=== PATIENT | female | born 1985 | race Caucasian/White ===

== ENCOUNTER 2020-04-22 13:23 | Outpatient (REF) | payer OTHER, SELFPAY | END 2020-04-22 13:24 | disposition home or self-care (01) | LOC: HO.LAB 13:23 | PROVIDERS: Visit Provider Internal Medicine | DX: Z20.828 Contact with and (suspected) exposure to other viral communicable diseases (principal) | CPT/HCPCS: C9803; U0003 ==

== ENCOUNTER 2020-07-26 11:33 | Emergency (ER) | payer OTHER, SELFPAY ==
--- NOTE | ~2020-07-26 | XR_ITS ---
EXAMINATION: XR CHEST CLINICAL INFORMATION: Chest pain COMPARISON: Previous chest x-ray November 2016 TECHNIQUE: Frontal view of the chest was obtained. FINDINGS: The cardiac and mediastinal contours are normal. The lungs are clear. There is no pleural effusion or pneumothorax. There are surgical clips in the region of the stomach. Bony structures are unremarkable. XR/XR chest 1V IMPRESSION: Unremarkable examination.
[2020-07-26 11:37] VITALS: BP 139/75; PULSE 93; RESP 20; TEMP 36.8; O2SAT 100; BMI 33.7
--- NOTE | 2020-07-26 11:43 | ECG_ITS ---
Test Reason : CHEST PAIN Blood Pressure : / mmHG Vent. Rate : 098 BPM Atrial Rate : 099 BPM P-R Int : 136 ms QRS Dur : 076 ms QT Int : 332 ms P-R-T Axes : 069 050 033 degrees QTc Int : 423 ms Normal sinus rhythm Normal ECG When compared with ECG of 12-AUG-2008 02:58, No significant change was found Referred By: Generic ED Physician Electronically Signed By:JARED ARMENTA
--- NOTE | 2020-07-26 11:52 | PC.NURSE ---
PT HYPERVENTILATING DURING EKG ATTEMPT, HAVING FULL ANXIETY ATTACK ABLE TO GET PT TO SLOW RESP AND REGAIN HER BREATHING RATE
--- NOTE | 2020-07-26 11:52 | ED.CHESTPAIN ---
HPI - Chest Pain General Chief Complaint: Chest Pain Stated Complaint: chest pain Time Seen by Provider: 07/26/20 11:52 Source: patient Mode of arrival: ambulatory Limitations: no limitations History of Present Illness HPI narrative: 34-year-old female with history of gastric sleeve 2017 as well as history of gastroesophageal reflux disease presenting today with complaint of 2 days of feeling increased anxiety and panic. States she started feeling warm yesterday and last night was watching movie and became very upset all night could not sleep as she said she was worried about her health and this morning she went to work and experienced 2 episodes described as ?panic attacks? States she is not really sure why she is having these but feels overwhelmed for no specific reason. States she does not have any history of anxiety and not currently taking any routine medication she only takes Prilosec p.r.n.. She does admit she returned from [place] 2 days ago after a weekend trip there. She denies any lower extremity swelling or pain. No headache or dizziness. No control, she was on Depo in the past. Unsure if she could be . MD complaint: chest heaviness Onset (ago): day(s) Timing of current episode: episodic Prior episodes: No Onset: during rest Pain location: other (Diffuse tightness in the chest) Pain radiation: none Severity: moderate Quality: tightness Relieving factors: nothing Exacerbating factors: nothing Treatment prior to arrival: none Risk Factors Coronary artery disease risk factors: none Thoracic aortic dissection risk factors: none Related Data On Oral Contraceptives: No Previous Rx's Medication Instructions Recorded hydroxyzine HCl 25 mg PO BID PRN #14 tab 07/26/20 Allergies Allergy/AdvReac Type Severity Reaction Status Date / Time No Known Allergies Allergy Unverified 02/11/20 15:22 [No Known Allergies*] Pt states no food/medication Allergy Unknown Uncoded 09/13/17 00:00 a Review of Systems Review of Systems: Constitutional: No Weight loss, No Fever, No Chills, No Night Sweats, No Fatigue, No Malaise ENT/Mouth: No Hearing loss, No Ear Pain, No Nasal Congestion, No Sinus Pain, No Hoarseness, No sore throat, No Rhinorrhea, No Swallowing Difficulty Eyes: No Eye Pain, No Swelling, No Redness, No Foreign Body, No Discharge, No Vision Changes Cardiovascular: + Chest Pain as noted per HPI, No SOB, No Dyspnea on Exertion, No Orthopnea, No Edema, No Palpitations Respiratory: No Cough, No Sputum, No Wheezing, No Smoke Exposure, No Dyspnea Gastrointestinal: No Nausea, No Vomiting, No Diarrhea, No Constipation, No abdominal Pain, No Hematochezia, No Melena Genitourinary: no irregular bleeding, No Dysuria, No Urinary Frequency, No Hematuria, No Urinary Incontinence, No Urgency, No Flank Pain, No Urinary Flow Changes, No Hesitancy Musculoskeletal: No joint pain, No Myalgias, No Joint Swelling Skin: No Skin Lesions, No rash Neuro: No Weakness, No Numbness, No Paresthesias, No Loss of Consciousness, No Dizziness, No Headache Psych: + Anxiety/Panic, No Depression, No SI/HI/AH/VH Heme/Lymph: No Bruising, No Bleeding,No Lymphadenopathy Endocrine: No Polyuria, No Polydipsia, No Temperature Intolerance Yes all other systems are reviewed and are negative [facility] Past Medical History Medical History GERD (gastroesophageal reflux disease) Surgical History Gastric bypass status for obesity Social History Social History Advance Directives: Yes Advance Directives Information Provided: Yes Advance Directives on File: No Physical Exam Vital Signs: Vital Signs: Last Vital Signs Temp 98.3 F 07/26/20 11:37 Pulse 77 07/26/20 13:41 Resp 18 07/26/20 13:41 BP 110/53 L 07/26/20 13:41 Pulse Ox 98 07/26/20 13:41 Body Mass Index 33.7 Reviewed Const: Other: Ambulated in from the waiting room upon arrival I was at bedside she is tearful states she had another panic attack in the waiting room. General: anxious; No acute distress or intoxicated appearing Nutritional Appearance: average body habitus Orientation/consciousness: patient oriented x3 HENMT: Head: Yes normal to inspection Ears: hearing grossly normal bilaterally Eyes: General: appearance normal, both eyes and all related structures Visual Claire: normal visual claire by confrontation Neck: Neck: Yes normal visual inspection, No positive Brudzinski's sign, No positive Kernig's sign and No tender Thyroid: Thyroid normal Chest: Chest palpation & inspection: normal inspection of the chest Resp: Effort & Inspection: normal respiratory effort Auscultation: clear to auscultation bilaterally Cardio: Jugular venous distension: no JVD Rhythm: regular rhythm Heart sounds: S1 normal heart sound present and S2 normal heart sound present GI: Inspection: Yes normal to inspection Palpation (GI): Soft to palpation Percussion: Yes normal to percussion Auscultation: normal bowel sounds : General: Yes no CVA tenderness Back/Spine/Pelvis: Back: no CVA tenderness Skin: General skin exam: no rashes or lesions noted Neuro: General: patient oriented x3 Extrem: General: Yes normal to inspection Psych: Appearance: well kempt Mental Status: mental status grossly normal Speech and movement: Normal speech and movement present Affect: Anxious affect present Attitude: cooperative Thought process: Normal thought process present Thought content: Normal thought content present Insight: Good insight present (Psych) Judgement: Good judgement present (Psych) MDM - Chest Pain MDM Narrative Medical decision making narrative: In review 34-year-old female with prior history of gastric sleeve as well as gastroesophageal reflux disease intermittently uses PPI presenting with AP consistent with atypical chest pain/anxiety with unknown trigger. Workup overall reassuring feels much better and rested after 0.5 mg IV Ativan. She denies any suicidal homicidal ideation. Her heart score is 0, D-dimer negative. Will discharge home with short course hydroxyzine with stress relieving techniques and close outpatient follow-up. She feels comfortable plan. Stable for discharge. Differential Diagnosis Differential diagnosis: Likely atypical chest pain, costochondritis and chest pain; Unlikely fracture of rib, pneumothorax, stable angina, unstable angina pectoris, st elevation myocardial infarction and biliary colic Medical Records Data Attestation: I reviewed the patient's medical records. Lab Data Attestation: I reviewed the patient's lab results. Result diagrams: 07/26/20 12:46 07/26/20 13:50 Labs: Lab Results 07/26/20 07/26/20 07/26/20 Range/Units 12:45 12:45 12:46 WBC 9.4 (4.8-10.8) X10*3/uL RBC 4.18 L (4.20-5.50) X10*6/uL Hgb 13.6 (12.0-16.0) g/dl Hct 39.0 (37-47) % MCV 93.3 (80-98) fL MCH 32.5 (27.0-33.0) pg MCHC 34.9 (31.0-35.0) g/dl RDW 11.6 (11.0-16.0) % Plt Count 278 (160-400) X10*3/uL MPV 10.2 (9.4-12.3) fL Immature Gran % (Auto) 0.2 (0.0-0.4) % Neut % (Auto) 63.3 (45-73) % Lymph % (Auto) 27.1 (20-40) % [place] % (Auto) 7.3 (2-11) % Eos % (Auto) 1.6 (0-4) % Baso % (Auto) 0.5 (0-2) % Lymph # (Auto) 2.5 (1.2-4.9) X10*3/uL [place] # (Auto) 0.7 (0.1-1.2) X10*3/uL Eos # (Auto) 0.2 (0.0-0.4) X10*3/uL Baso # (Auto) 0.1 (0.0-0.2) X10*3/uL Abs Immat Gran (auto) 0.02 (0.00-0.03) X10*3/uL Absolute Neuts (auto) 5.9 (2.0-8.3) X10*3/uL Absolute Nucleated RBC 0.000 (0.0-0.012) X10*3/uL Nucleated RBC % (auto) 0.0 (0.0-0.2) /100WBC PT 12.4 (10.8-13.0) SEC INR 1.0 (0.9-1.1) APTT 41.0 H (24.1-38.0) SEC D-Dimer < 200 NG/ML Sodium (135-145) mmol/L Potassium (3.3-5.1) mmol/L Chloride (96-108) mmol/L Carbon Dioxide (22-29) mmol/L Anion Gap (12-20) BUN (9-16) mg/dL Creatinine (0.5-1.4) mg/dL Estim Creat Clear Calc Estimated GFR Random Glucose (60-115) mg/dL Calcium (8.4-10.2) mg/dL Total Bilirubin (0.0-1.0) mg/dL AST (5-31) U/L ALT (0-31) U/L Alkaline Phosphatase (39-117) U/L Troponin I High Sens < 3.5 (<3.5-17.0) ng/L Total Protein (6.5-8.0) g/dL Albumin (3.5-5.0) g/dL Urine Color Urine Appearance Urine pH (5.0-8.0) Ur Specific [place] (1.005-1.025) Urine Protein (NEG-TRACE) MG/DL Urine Glucose (UA) (NEG) MG/DL Urine Ketones (NEG) MG/DL Urine Blood (NEG) Urine Nitrite (NEG) Ur Leukocyte Esterase (NEG) Urine RBC (0) /HPF Urine WBC (0-4) /HPF Ur Squamous Epith Cells /LPF Urine Bacteria /LPF Urine Test (NEGATIVE) Urine Opiates Screen (Not Detect) Ur Barbiturates Screen (Not Detect) Ur Phencyclidine Scrn (Not Detect) Ur Amphetamines Screen (Not Detect) U Benzodiazepines Scrn (Not Detect) Urine Cocaine Screen (Not Detect) U Marijuana (THC) Screen (Not Detect) SARS-CoV-2 (PCR) COVID-19 ([facility]) (Negative) COVID-19 Clin Com 07/26/20 07/26/20 07/26/20 Range/Units 13:00 13:00 13:50 WBC (4.8-10.8) X10*3/uL RBC (4.20-5.50) X10*6/uL Hgb (12.0-16.0) g/dl Hct (37-47) % MCV (80-98) fL MCH (27.0-33.0) pg MCHC (31.0-35.0) g/dl RDW (11.0-16.0) % Plt Count (160-400) X10*3/uL MPV (9.4-12.3) fL Immature Gran % (Auto) (0.0-0.4) % Neut % (Auto) (45-73) % Lymph % (Auto) (20-40) % [place] % (Auto) (2-11) % Eos % (Auto) (0-4) % Baso % (Auto) (0-2) % Lymph # (Auto) (1.2-4.9) X10*3/uL [place] # (Auto) (0.1-1.2) X10*3/uL Eos # (Auto) (0.0-0.4) X10*3/uL Baso # (Auto) (0.0-0.2) X10*3/uL Abs Immat Gran (auto) (0.00-0.03) X10*3/uL Absolute Neuts (auto) (2.0-8.3) X10*3/uL Absolute Nucleated RBC (0.0-0.012) X10*3/uL Nucleated RBC % (auto) (0.0-0.2) /100WBC PT (10.8-13.0) SEC INR (0.9-1.1) APTT (24.1-38.0) SEC D-Dimer NG/ML Sodium 140 (135-145) mmol/L Potassium 4.2 (3.3-5.1) mmol/L Chloride 110 H (96-108) mmol/L Carbon Dioxide 22 (22-29) mmol/L Anion Gap 12 (12-20) BUN 12 (9-16) mg/dL Creatinine 0.77 (0.5-1.4) mg/dL Estim Creat Clear Calc 89.6 Estimated GFR > 60 Random Glucose 70 (60-115) mg/dL Calcium 8.6 (8.4-10.2) mg/dL Total Bilirubin 0.3 (0.0-1.0) mg/dL AST 16 (5-31) U/L ALT 15 (0-31) U/L Alkaline Phosphatase 74 (39-117) U/L Troponin I High Sens (<3.5-17.0) ng/L Total Protein 6.8 (6.5-8.0) g/dL Albumin 4.1 (3.5-5.0) g/dL Urine Color Urine Appearance Urine pH (5.0-8.0) Ur Specific [place] (1.005-1.025) Urine Protein (NEG-TRACE) MG/DL Urine Glucose (UA) (NEG) MG/DL Urine Ketones (NEG) MG/DL Urine Blood (NEG) Urine Nitrite (NEG) Ur Leukocyte Esterase (NEG) Urine RBC (0) /HPF Urine WBC (0-4) /HPF Ur Squamous Epith Cells /LPF Urine Bacteria /LPF Urine Test (NEGATIVE) Urine Opiates Screen (Not Detect) Ur Barbiturates Screen (Not Detect) Ur Phencyclidine Scrn (Not Detect) Ur Amphetamines Screen (Not Detect) U Benzodiazepines Scrn (Not Detect) Urine Cocaine Screen (Not Detect) U Marijuana (THC) Screen (Not Detect) SARS-CoV-2 (PCR) Cancelled COVID-19 ([facility]) Negative (Negative) COVID-19 Clin Com See Note 07/26/20 07/26/20 07/26/20 Range/Units 13:50 13:50 13:50 WBC (4.8-10.8) X10*3/uL RBC (4.20-5.50) X10*6/uL Hgb (12.0-16.0) g/dl Hct (37-47) % MCV (80-98) fL MCH (27.0-33.0) pg MCHC (31.0-35.0) g/dl RDW (11.0-16.0) % Plt Count (160-400) X10*3/uL MPV (9.4-12.3) fL Immature Gran % (Auto) (0.0-0.4) % Neut % (Auto) (45-73) % Lymph % (Auto) (20-40) % [place] % (Auto) (2-11) % Eos % (Auto) (0-4) % Baso % (Auto) (0-2) % Lymph # (Auto) (1.2-4.9) X10*3/uL [place] # (Auto) (0.1-1.2) X10*3/uL Eos # (Auto) (0.0-0.4) X10*3/uL Baso # (Auto) (0.0-0.2) X10*3/uL Abs Immat Gran (auto) (0.00-0.03) X10*3/uL Absolute Neuts (auto) (2.0-8.3) X10*3/uL Absolute Nucleated RBC (0.0-0.012) X10*3/uL Nucleated RBC % (auto) (0.0-0.2) /100WBC PT (10.8-13.0) SEC INR (0.9-1.1) APTT (24.1-38.0) SEC D-Dimer NG/ML Sodium (135-145) mmol/L Potassium (3.3-5.1) mmol/L Chloride (96-108) mmol/L Carbon Dioxide (22-29) mmol/L Anion Gap (12-20) BUN (9-16) mg/dL Creatinine (0.5-1.4) mg/dL Estim Creat Clear Calc Estimated GFR Random Glucose (60-115) mg/dL Calcium (8.4-10.2) mg/dL Total Bilirubin (0.0-1.0) mg/dL AST (5-31) U/L ALT (0-31) U/L Alkaline Phosphatase (39-117) U/L Troponin I High Sens (<3.5-17.0) ng/L Total Protein (6.5-8.0) g/dL Albumin (3.5-5.0) g/dL Urine Color YELLOW Urine Appearance CLEAR Urine pH 6.5 (5.0-8.0) Ur Specific [place] 1.015 (1.005-1.025) Urine Protein NEG (NEG-TRACE) MG/DL Urine Glucose (UA) NEG (NEG) MG/DL Urine Ketones NEG (NEG) MG/DL Urine Blood NEG (NEG) Urine Nitrite NEG (NEG) Ur Leukocyte Esterase NEG (NEG) Urine RBC 0 (0) /HPF Urine WBC 0 (0-4) /HPF Ur Squamous Epith Cells NONE /LPF Urine Bacteria NONE /LPF Urine Test NEGATIVE (NEGATIVE) Urine Opiates Screen Not Detected (Not Detect) Ur Barbiturates Screen Not Detected (Not Detect) Ur Phencyclidine Scrn Not Detected (Not Detect) Ur Amphetamines Screen Not Detected (Not Detect) U Benzodiazepines Scrn Not Detected (Not Detect) Urine Cocaine Screen Not Detected (Not Detect) U Marijuana (THC) Screen Not Detected (Not Detect) SARS-CoV-2 (PCR) COVID-19 ([facility]) (Negative) COVID-19 Clin Com Imaging Data Chest x-ray: Radiologist's impression: [address] [id number] ReportSigned Patient: Josiane SantizoMR#: [id number]: [id number]:[id number]/Sex: 34 / FADM Date: 07/26/20Loc: HO.EDAttending Dr: Ordering Physician: Donavon Dee NP Date of Service: 07/26/20 Procedure(s): XR chest 1V Accession Number(s): [id number] cc: Donavon Dee COMPUTER ASSEMBLER~ EXAMINATION: XR CHEST CLINICAL INFORMATION: Chest pain COMPARISON: Previous chest x-ray November 2016 TECHNIQUE: Frontal view of the chest was obtained. FINDINGS: The cardiac and mediastinal contours are normal. The lungs are clear. There is no pleural effusion or pneumothorax. There are surgical clips in the region of the stomach. Bony structures are unremarkable. XR/XR chest 1V IMPRESSION: Unremarkable examination. Dictated By:BONI LOPEZ MDSigned By:<Electronically signed by BONI LOPEZ MD in OV>07/26/20 1238 DD/ 1159TD/TT: Turntable Man: ILA ECG Data ECG #1: Interpretation: Normal sinus rhythm Normal ECG Rate 98 When compared with ECG of 12-AUG-2008 02:58, No significant change was found Discharge Plan Discharge Clinical Impression: Atypical chest pain, Anxiety Patient Disposition: Home, Self-Care Instructions: Chest Pain (ED), Anxiety (ED) Additional Instructions: Your blood work was overall reassuring Her chest x-ray did not show any signs of infection Your blood work did not show any evidence of heart attack Your COVID test was negative Your urine test was negative for infection or Home care instructions reviewed Return if any concerns or worsening symptoms Follow up with her primary care doctor as discussed Take medication as prescribed Thank you Prescriptions: New hydroxyzine HCl 25 mg tablet 25 mg PO BID PRN (Reason: anxiety) Qty: 14 RF: 1 Referrals: Pablito Varela MD [Primary Care Provider] - 3 days Stand Alone Forms: Work/School Release Interventions: ED Discharge Assessment Last Done: 07/26/20 14:58 Discharge Date/Time: 07/26/20 14:58
[2020-07-26 12:51] LABS: Basophils Absolute Auto 0.1 X10*3/uL (0.0-0.2); Basophils Percent Auto 0.5 % (0-2); Eosinophils Absolute Auto 0.2 X10*3/uL (0.0-0.4); Eosinophils Percent Auto 1.6 % (0-4); Hemoglobin 13.6 g/dl (12.0-16.0); Imm Gran Abs Auto 0.02 X10*3/uL (0.00-0.03); Imm Gran Pct Auto 0.2 % (0.0-0.4); Lymphocytes Absolute Auto 2.5 X10*3/uL (1.2-4.9); Lymphocytes Percent Auto 27.1 % (20-40); MANUAL DIFF FLAG NO; Mean Corpuscular HGB Conc 34.9 g/dl (31.0-35.0); Mean Corpuscular Hemoglobin 32.5 pg (27.0-33.0); Mean Corpuscular Volume 93.3 fL (80-98); Mean Platelet Volume 10.2 fL (9.4-12.3); Monocytes Absolute Auto 0.7 X10*3/uL (0.1-1.2); Monocytes Percent Auto 7.3 % (2-11); Neutrophils Absolute Auto 5.9 X10*3/uL (2.0-8.3); Neutrophils Percent Auto 63.3 % (45-73); Platelet Count 278 X10*3/uL (160-400); Red Blood Count 4.18 X10*6/uL (4.20-5.50); Red Cell Distribution Width 11.6 % (11.0-16.0); White Blood Count 9.4 X10*3/uL (4.8-10.8)
[2020-07-26] MEDS: LORazepam 2 MG/ML VIAL 0.5 MG IVPUSH (12:53)
[2020-07-26 13:01] LABS: Prothrombin Time 12.4 SEC (10.8-13.0)
[2020-07-26 13:05] LABS: D Dimer < 200 NG/ML
[2020-07-26 13:26] LABS: Troponin-I High Sensitivity < 3.5 ng/L (<3.5-17.0)
[2020-07-26 13:41] VITALS: BP 110/53; PULSE 77; RESP 18; O2SAT 98
[2020-07-26 13:41] LABS: COVID-19 Test Negative (Negative)
--- NOTE | 2020-07-26 13:59 | PC.NURSE ---
ambulated to bathroom but needed assistance. states that ativan made her dizzy.
[2020-07-26 14:05] LABS: Glucose Urine UA NEG (NEG); Leukocyte Esterase Urine NEG (NEG); Nitrite Urine NEG (NEG); PH 6.5 (5.0-8.0); Specific Gravity - Urine 1.015 (1.005-1.025); Urine Blood NEG (NEG); Urine Ketones NEG (NEG); Urine Protein NEG (NEG-TRACE)
[2020-07-26 14:08] LABS: Appearance Urine CLEAR; Color Urine YELLOW; UPreg QC Valid YES; Urine Pregnancy NEGATIVE (NEGATIVE)
[2020-07-26 14:19] LABS: RBC Urine 0 /HPF (0); WBC Urine 0 /HPF (0-4)
[2020-07-26 14:23] LABS: Alanine Aminotransferase 15 U/L (0-31); Albumin Level 4.1 g/dL (3.5-5.0); Alkaline Phosphatase 74 U/L (39-117); Anion Gap 12 (12-20); Aspartate Amino Transferase 16 U/L (5-31); Bilirubin Total 0.3 mg/dL (0.0-1.0); Blood Urea Nitrogen 12 mg/dL (9-16); Calcium 8.6 mg/dL (8.4-10.2); Carbon Dioxide 22 mmol/L (22-29); Chloride 110 mmol/L (96-108); Creatinine Clr Calc Pharmacy 89.6; Estimated Glomerular Filt Rate > 60; Glucose Random 70 mg/dL (60-115); Potassium 4.2 mmol/L (3.3-5.1); Sodium 140 mmol/L (135-145); Total Protein 6.8 g/dL (6.5-8.0)
[2020-07-26 14:35] LABS: Amphetamine Screen Urine Not Detected (Not Detect); Barbiturates, Urine Not Detected (Not Detect); Benzodiazepines Screen Urine Not Detected (Not Detect); Cannabinoid Screen Urine Not Detected (Not Detect); Cocaine Screen Urine Not Detected (Not Detect); Opiate Screen Urine Not Detected (Not Detect); Phencyclidine Screen Urine Not Detected (Not Detect)
== END 2020-07-26 14:58 | disposition home or self-care (01) ==
PROVIDERS: Nurse Practitioner Primary Care; Emergency Provider Emergency Medicine; PCP Internal Medicine
DX: R07.89 Other chest pain (principal); F41.1 Generalized anxiety disorder; F43.0 Acute stress reaction; Z98.84 Bariatric surgery status; Z79.899 Other long term (current) drug therapy
CPT/HCPCS: 36415; 71045; 80053; 80307; 81001; 81025; 84484; 85025; 85379; 85610; 85730; 87635; 93005; 96374; 99283; J2060

== ENCOUNTER 2021-02-15 14:58 | Outpatient (REF) | payer OTHER, SELFPAY | END 2021-02-15 14:59 | disposition home or self-care (01) | LOC: HO.LAB 14:58 | PROVIDERS: Visit Provider Internal Medicine | DX: Z20.822 Contact with and (suspected) exposure to COVID-19 (principal); J06.9 Acute upper respiratory infection, unspecified | CPT/HCPCS: U0003; U0005 ==

== ENCOUNTER 2021-11-19 11:43 | Emergency (ER) | payer OTHER, SELFPAY ==
--- NOTE | ~2021-11-19 | XR_ITS ---
EXAMINATION: XR CHEST CLINICAL INFORMATION: Shortness of breath COMPARISON: 07/26/2020 TECHNIQUE: Frontal view of the chest was obtained. FINDINGS: No significant abnormality is noted involving the heart, lungs, mediastinum, bony thorax or soft tissues. XR/XR chest 1V IMPRESSION: Unremarkable examination.
[2021-11-19 11:49] VITALS: BP 130/97; PULSE 100; O2SAT 100
[2021-11-19 11:53] VITALS: BP 118/70; PULSE 95; RESP 20; TEMP 36.8; O2SAT 100; BMI 37.3
[2021-11-19 11:57] LABS: Glucose, Whole Blood 100 mg/dL (60-115)
--- NOTE | 2021-11-19 12:09 | ED_ITS ---
HPI - General Adult General Chief complaint: Recheck/Abnormal Lab/Rx Stated complaint: DIFF BREATH 100% RA,ANX ATTACK,BS 70 GLUC GIVEN Time Seen by Provider: 11/19/21 11:50 Source: patient and EMS Mode of arrival: EMS Limitations: no limitations History of Present Illness HPI narrative: 36-year-old female past medical history significant for anxiety/panic presenting to the emergency department via ambulance with shortness of breath and reported hypoglycemia. According to EMS they were called because patient was feeling short of breath, when they arrived she was noted to have a low sugar, they administered glucose with improvement. Patient tells me that she felt very dizzy, diaphoretic and she felt like she was going to pass out however she never lost consciousness. She tells me that her vision became blurred. She tells me that this feels like her typical anxiety/panic attack, cannot report any ahsan ers, she tells me that they happen randomly sometimes. Patient also reports that she did not eat at all today. At this time patient is feeling completely better, denies any medical complaints. Patient denies chest pain, nausea, vomiting, fevers, chills, abdominal pain, headache, vision changes, dizziness. Patient requesting to go home as she arrives to the hospital. Onset (ago): hour(s) (2) Related Data Previous Rx's Medication Instructions Recorded hydroxyzine HCl 25 mg tablet 25 mg PO BID PRN anxiety #14 tabs 07/26/20 azithromycin 250 mg tablet See Rx Instructions PO .COMPLEX #6 02/15/21 tabs Allergies Allergy/AdvReac Type Severity Reaction Status Date / Time No Known Allergies Allergy Verified 02/15/21 14:19 [No Known Allergies*] Pt states no food/medication Allergy Unknown unknown Uncoded 02/15/21 14:19 a Review of Systems Review of Systems: Constitutional : No Weight loss, No Fever, No Chills, No Fatigue, No Malaise ENT/Mouth : No sore throat, No Rhinorrhea Eyes: No Eye Pain, No Swelling, No Redness Cardiovascular : No Chest Pain, No SOB, No Dyspnea on Exertion, No Orthopnea, No Edema, No Palpitations Respiratory : No Cough, No Sputum, No Wheezing Gastrointestinal : No Nausea, No Vomiting, No Diarrhea, No Constipation, No abdominal Pain, No Hematochezia, No Melena Genitourinary : No Dysuria, No Urinary Frequency, No Hematuria, Musculoskeletal : No joint pain, No Myalgias, No Joint Swelling Skin : No Skin Lesions, No rash Neuro : No Weakness, No Numbness, No Dizziness, No Headache Psych : No Anxiety/Panic, No Depression All other systems reviewed and are negative Yes all other systems are reviewed and are negative [facility] Past Medical History Attestation statement: The following information was validated with the patient. Source: old records reviewed and nursing notes reviewed Medical History GERD (gastroesophageal reflux disease) Surgical History Gastric bypass status for obesity Social History Social History Advance Directives: No Advance Directives Information Provided: No Physical Exam ED Vital Signs: Vital Signs - 24 hr 11/19/21 11:53 Temperature 98.2 F Pulse Rate 95 Respiratory Rate 20 Blood Pressure 118/70 Pulse Oximetry 100 Oxygen Delivery Method Room Air BMI result Body Mass Index 37.3 VSS Appearance: Alert.? Oriented X3.? No acute distress.? Head: Normocephalic, atraumatic, no step-offs or deformities Eyes: Pupils equal, round and reactive to light.?EOMI ENT: Pharynx normal.? Neck: Normal inspection.? Neck supple.? CVS: Normal heart rate and rhythm.? Pulses normal.? Respiratory: No respiratory distress.? Breath sounds normal.? Abdomen: Soft and nontender.? Skin: Skin warm and dry.? Normal skin color.? Normal skin turgor.? Extremities: No lower extremity edema.? No calf ttp. 5/5 strength to bilateral upper and lower extremities Neuro: Oriented X 3.? No motor deficit.? No sensory deficit. CN 2-12 intact. Nor mal steady gait, normal finger to nose. Course Reevaluation(s) Reevaluation #1: CBC within normal limits. POC 100. Chemistry pending. Time: 13:14 Reevaluation #2: Patient's labs hemolyzed and patient was very test checked therefore there is a delay in obtaining laboratory studies. Chemistry with no acute electrolyte abnormalities requiring intervention. Troponin negative, EKG nonischemic. UA without infection. COVID negative. Time: 15:00 Reevaluation #3: At this time I suspect that patient had a panic/anxiety attack. No signs of electrolyte abnormalities. No signs of dysrhythmia/EKG abnormalities. No signs of ACS. At this time patient will be discharged home patient's last glucose was 100, patient tells me she feels much better. At this time patient will be discharged. Outlined worrisome signs and symptoms on discharge in advised her to return if any of these arise Time: 15:02 Medical Decision Making [facility] Narrative Medical decision making narrative: 1210 36-year-old female presents with EMS who reported that she had shortness of breath, dizziness, was found to have hypoglycemia at work and therefore was given glucose by the ambulance. Now on arrival patient reports that all symptoms have subsided she has none of these symptoms anymore, she is feeling better and she feels like this was her typical panic attack. Physical examination benign Unlikley CHF, PE/DVT, pna, stroke, posterior stroke. Likley acute panic. Plan at this time is basic labs, EKG, hydration Medical Records Medical records reviewed: Yes I reviewed the patient's medical records. Lab Data Lab results reviewed: Yes I reviewed the patient's lab results. Result diagrams: 11/19/21 12:33 11/19/21 13:55 Labs: Lab Results 11/19/21 11/19/21 11/19/21 Range/Units 11:53 12:29 12:33 WBC 10.8 (4.8-10.8) X10*3/uL RBC 4.41 (4.20-5.50) X10*6/uL Hgb 13.9 (12.0-16.0) g/dl Hct 40.5 (37.0-47.0) % MCV 91.8 (80.0-98.0) fL MCH 31.5 (27.0-33.0) pg MCHC 34.3 (31.0-35.0) g/dl RDW 12.1 (11.0-16.0) % Plt Count 270 (160-400) X10*3/uL MPV 10.1 (9.4-12.3) fL Immature Gran % (Auto) 0.4 (0.0-0.4) % Neut % (Auto) 68.3 (45-73) % Lymph % (Auto) 22.2 (20-40) % [place] % (Auto) 7.4 (2-11) % Eos % (Auto) 1.3 (0-4) % Baso % (Auto) 0.4 (0-2) % Lymph # (Auto) 2.4 (1.2-4.9) X10*3/uL [place] # (Auto) 0.8 (0.1-1.2) X10*3/uL Eos # (Auto) 0.1 (0.0-0.4) X10*3/uL Baso # (Auto) 0.0 (0.0-0.2) X10*3/uL Abs Immat Gran (auto) 0.04 H (0.00-0.03) X10*3/uL Absolute Neuts (auto) 7.4 (2.0-8.3) x10*3/uL Absolute Nucleated RBC 0.000 (0.0-0.012) X10*3/uL Nucleated RBC % (auto) 0.0 (0.0-0.2) /100WBC Sodium (135-145) mmol/L Potassium (3.3-5.1) mmol/L Chloride (96-108) mmol/L Carbon Dioxide (22-29) mmol/L Anion Gap (12-20) BUN (9-16) mg/dL Creatinine (0.5-1.4) mg/dL Estim Creat Clear Calc Estimated GFR POC Glucose 100 (60-115) mg/dL Random Glucose (60-115) mg/dL Calcium (8.4-10.2) mg/dL Magnesium (1.6-2.6) mg/dL Total Bilirubin (0.0-1.0) mg/dL AST (5-31) U/L ALT (0-31) U/L Alkaline Phosphatase (39-117) U/L Troponin I High Sens (<3.5-17.0) ng/L Total Protein (6.5-8.0) g/dL Albumin (3.5-5.0) g/dL Urine Color Urine Appearance Urine pH (5.0-8.0) Ur Specific [place] (1.005-1.025) Urine Protein (NEG-TRACE) MG/DL Urine Glucose (UA) (NEG) MG/DL Urine Ketones (NEG) MG/DL Urine Blood (NEG) Urine Nitrite (NEG) Ur Leukocyte Esterase (NEG) Urine RBC (0) /HPF Urine WBC (0-4) /HPF Ur Squamous Epith Cells /LPF Urine Bacteria /LPF COVID-19 ([facility]) Negative (Negative) COVID-19 Clin Com See Note 11/19/21 11/19/21 11/19/21 Range/Units 13:42 13:55 13:56 WBC (4.8-10.8) X10*3/uL RBC (4.20-5.50) X10*6/uL Hgb (12.0-16.0) g/dl Hct (37.0-47.0) % MCV (80.0-98.0) fL MCH (27.0-33.0) pg MCHC (31.0-35.0) g/dl RDW (11.0-16.0) % Plt Count (160-400) X10*3/uL MPV (9.4-12.3) fL Immature Gran % (Auto) (0.0-0.4) % Neut % (Auto) (45-73) % Lymph % (Auto) (20-40) % [place] % (Auto) (2-11) % Eos % (Auto) (0-4) % Baso % (Auto) (0-2) % Lymph # (Auto) (1.2-4.9) X10*3/uL [place] # (Auto) (0.1-1.2) X10*3/uL Eos # (Auto) (0.0-0.4) X10*3/uL Baso # (Auto) (0.0-0.2) X10*3/uL Abs Immat Gran (auto) (0.00-0.03) X10*3/uL Absolute Neuts (auto) (2.0-8.3) x10*3/uL Absolute Nucleated RBC (0.0-0.012) X10*3/uL Nucleated RBC % (auto) (0.0-0.2) /100WBC Sodium 138 (135-145) mmol/L Potassium 3.9 (3.3-5.1) mmol/L Chloride 109 H (96-108) mmol/L Carbon Dioxide 20 L (22-29) mmol/L Anion Gap 13 (12-20) BUN 12 (9-16) mg/dL Creatinine 0.66 (0.5-1.4) mg/dL Estim Creat Clear Calc 108.5 Estimated GFR > 60 POC Glucose (60-115) mg/dL Random Glucose 85 (60-115) mg/dL Calcium 8.7 (8.4-10.2) mg/dL Magnesium 2.0 (1.6-2.6) mg/dL Total Bilirubin < 0.2 (0.0-1.0) mg/dL AST 16 (5-31) U/L ALT 14 (0-31) U/L Alkaline Phosphatase 78 (39-117) U/L Troponin I High Sens < 3.5 (<3.5-17.0) ng/L Total Protein 6.8 (6.5-8.0) g/dL Albumin 4.0 (3.5-5.0) g/dL Urine Color YELLOW Urine Appearance CLEAR Urine pH 6.0 (5.0-8.0) Ur Specific [place] 1.015 (1.005-1.025) Urine Protein NEG (NEG-TRACE) MG/DL Urine Glucose (UA) NEG (NEG) MG/DL Urine Ketones NEG (NEG) MG/DL Urine Blood 2+ H (NEG) Urine Nitrite NEG (NEG) Ur Leukocyte Esterase NEG (NEG) Urine RBC 0-2 (0) /HPF Urine WBC 0 (0-4) /HPF Ur Squamous Epith Cells 1+ /LPF Urine Bacteria TRACE /LPF COVID-19 ([facility]) (Negative) COVID-19 Clin Com ECG Data Attestation: I personally reviewed and interpreted this ECG as follows: Prior ECG tracings: not available for review Interpretation: Ventricular rate of 78, MS normal, QRS normal, QT/QTC normal. EKG without ST elevations or inversions concerning for ischemia. No previous EKGs to compare with. Critical Care Time Critical Care Time Critical Care Time: No Discharge Plan Discharge Clinical Impression: Near syncope, Panic attack Patient Disposition: Home, Self-Care Additional Instructions: Take your medications as prescribed. If you were prescribed antibiotics today, it is important that you take your medication to their entirety, do not skip any doses, do not finish them early. Follow-up with your primary care provider this week. Return to the emergency department with new or worsening symptoms. Such as fevers, chills, chest pain, shortness of breath, nausea, vomiting, dizziness, headache, vision changes, lethargy In case of emergency call 911 Drink plenty of fluids. Prescriptions: No Action hydroxyzine HCl 25 mg tablet 25 mg PO BID PRN (Reason: anxiety) Qty: 14 1RF azithromycin 250 mg tablet See Rx Instructions PO .COMPLEX Qty: 6 0RF Rx Instructions: take 500 mg today (day 1), then 250 mg for 4 days (days 2-5) PO Referrals: Pablito Varela III, MD [Primary Care Provider] - 2 days Stand Alone Forms: Work/School Release
[2021-11-19 12:41] LABS: MANUAL DIFF FLAG NO
[2021-11-19 12:43] LABS: Basophils Percent Auto 0.4 % (0-2); Eosinophils Absolute Auto 0.1 X10*3/uL (0.0-0.4); Eosinophils Percent Auto 1.3 % (0-4); Hematocrit 40.5 % (37.0-47.0); Hemoglobin 13.9 g/dl (12.0-16.0); Imm Gran Abs Auto 0.04 X10*3/uL (0.00-0.03); Imm Gran Pct Auto 0.4 % (0.0-0.4); Lymphocytes Absolute Auto 2.4 X10*3/uL (1.2-4.9); Lymphocytes Percent Auto 22.2 % (20-40); Mean Corpuscular HGB Conc 34.3 g/dl (31.0-35.0); Mean Corpuscular Hemoglobin 31.5 pg (27.0-33.0); Mean Corpuscular Volume 91.8 fL (80.0-98.0); Mean Platelet Volume 10.1 fL (9.4-12.3); Monocytes Absolute Auto 0.8 X10*3/uL (0.1-1.2); Monocytes Percent Auto 7.4 % (2-11); Neutrophils Absolute Auto 7.4 x10*3/uL (2.0-8.3); Neutrophils Percent Auto 68.3 % (45-73); Platelet Count 270 X10*3/uL (160-400); Red Blood Count 4.41 X10*6/uL (4.20-5.50); Red Cell Distribution Width 12.1 % (11.0-16.0); White Blood Count 10.8 X10*3/uL (4.8-10.8)
[2021-11-19 13:00] LABS: COVID-19 Test Negative (Negative); IDNOW Serial# 08D9AD1C
--- NOTE | 2021-11-19 13:14 | ECG_ITS ---
Test Reason : HYPOGLYCEMIA Blood Pressure : / mmHG Vent. Rate : 000 BPM Atrial Rate : 000 BPM P-R Int : 000 ms QRS Dur : 000 ms QT Int : 000 ms P-R-T Axes : 000 000 000 degrees QTc Int : 000 ms No QRS complexes found, no ECG analysis possible When compared with ECG of 26-JUL-2020 11:51, Current undetermined rhythm precludes rhythm comparison, needs review Referred By: Damián Duncan Electronically Signed By:
[2021-11-19] MEDS: 0.9 % Sodium Chloride 1,000 ML 999 ML IV (13:23)
--- NOTE | 2021-11-19 14:08 | PC.NURSE ---
pt requiring multiple sticks for blood work d/t hemolysis
[2021-11-19 14:10] LABS: Appearance Urine CLEAR; Color Urine YELLOW; Glucose Urine UA NEG (NEG); Leukocyte Esterase Urine NEG (NEG); Nitrite Urine NEG (NEG); Specific Gravity - Urine 1.015 (1.005-1.025); UACC Culture Trigger NO; Urine Blood 2+ (NEG); Urine Ketones NEG (NEG); Urine Protein NEG (NEG-TRACE)
[2021-11-19 14:29] LABS: Bacteria Urine TRACE /LPF; RBC Urine 0-2 /HPF (0); Squamous Epithelial Cell Urine 1+ /LPF; WBC Urine 0 /HPF (0-4)
[2021-11-19 14:35] LABS: Alanine Aminotransferase 14 U/L (0-31); Alkaline Phosphatase 78 U/L (39-117); Anion Gap 13 (12-20); Aspartate Amino Transferase 16 U/L (5-31); Bilirubin Total < 0.2 mg/dL (0.0-1.0); Blood Urea Nitrogen 12 mg/dL (9-16); Calcium 8.7 mg/dL (8.4-10.2); Carbon Dioxide 20 mmol/L (22-29); Chloride 109 mmol/L (96-108); Creatinine Clr Calc Pharmacy 108.5; Estimated Glomerular Filt Rate > 60; Glucose Random 85 mg/dL (60-115); Potassium 3.9 mmol/L (3.3-5.1); Sodium 138 mmol/L (135-145); Total Protein 6.8 g/dL (6.5-8.0)
[2021-11-19 14:53] LABS: Troponin-I High Sensitivity < 3.5 ng/L (<3.5-17.0)
== END 2021-11-19 15:02 | disposition home or self-care (01) ==
PROVIDERS: Physician Assistant; Emergency Provider Emergency Medicine Emergency Medical Services; PCP Internal Medicine
DX: F41.0 Panic disorder [episodic paroxysmal anxiety] (principal); R55 Syncope and collapse; E16.2 Hypoglycemia, unspecified; Z98.84 Bariatric surgery status; Z20.822 Contact with and (suspected) exposure to COVID-19
CPT/HCPCS: 71045; 80053; 81001; 81003; 82947; 83735; 84484; 85025; 87635; 93005; 96360; 99283; 99284

== ENCOUNTER 2022-05-02 15:06 | Emergency (ER) | payer OTHER, SELFPAY | END 2022-05-02 18:11 | disposition left against medical advice (07) | LOC: HO.ED 18:07 | PROVIDERS: Emergency Provider Emergency Medicine; PCP Internal Medicine | DX: R51.9 Headache, unspecified (principal) ==

== ENCOUNTER 2022-05-17 20:01 | Emergency (ER) | payer OTHER, SELFPAY ==
[2022-05-17 20:21] VITALS: BP 118/73; PULSE 102; RESP 16; TEMP 37.2; O2SAT 98; BMI 38.3
[2022-05-17 21:45] LABS: Influenza A PCR NEGATIVE (Negative); Influenza B PCR NEGATIVE (Negative); Resp Syncy Virus RNA Qual PCR NEGATIVE (Negative); SARS COV2 PCR INHOUSE NEGATIVE (Negative)
[2022-05-17] MEDS: Albuterol Sulfate 2.5 MG, Albuterol/Iprat 2.5/0.5MG 3 ML 3 ML INHALE (23:38)
[2022-05-17 23:40] VITALS: PULSE 96; RESP 16; O2SAT 96
--- NOTE | 2022-05-18 00:09 | ED.URI ---
HPI - URI/Sore Throat General Chief Complaint: Fever Stated Complaint: cough,chest congestion,asthma Time Seen by Provider: 05/17/22 22:33 Source: patient Mode of arrival: ambulatory Limitations: no limitations History of Present Illness HPI Narrative: Patient with history of asthma at [facility] 2 weeks ago since then been coughing got worse for last few days with fever of 102 coughing mucopurulent phlegm feel chest tight, saturating 98% on room air Related Data Previous Rx's Medication Instructions Recorded hydroxyzine HCl 25 mg tablet 25 mg PO BID PRN anxiety #14 tabs 07/26/20 azithromycin 250 mg tablet See Rx Instructions PO .COMPLEX #6 02/15/21 tabs albuterol sulfate 90 mcg/actuation 2 puff inhalation Q4-6H PRN 05/18/22 aerosol inhaler (ProAir HFA) shortness of breath or wheezing #8.5 grams amoxicillin 875 mg-potassium 1 tab PO BID #20 tabs 05/18/22 clavulanate 125 mg tablet codeine 10 mg-guaifenesin 100 mg/5 10 ml PO Q6H PRN cough #237 mL 05/18/22 mL oral liquid prednisone 20 mg tablet 40 mg PO DAILY #10 tabs 05/18/22 Allergies Allergy/AdvReac Type Severity Reaction Status Date / Time No Known Allergies Allergy Verified 05/17/22 20:24 [No Known Allergies*] Pt states no food/medication Allergy Unknown unknown Uncoded 05/17/22 20:24 a Review of Systems Review of Systems: Yes all other systems are reviewed and are negative PMFSH Past Medical History Medical History GERD (gastroesophageal reflux disease) Surgical History Gastric bypass status for obesity Social History Social History Advance Directives: No Advance Directives Information Provided: Yes Physical Exam Vital Signs: Vital Signs: Last Vital Signs Temp 99.0 F 05/17/22 20:21 Pulse 96 05/17/22 23:40 Resp 16 05/17/22 23:40 BP 118/73 05/17/22 20:21 Pulse Ox 98 12/22/22 20:21 O2 Del Method 05/17/22 20:21 BMI result Body Mass Index 38.3 Appearance: Alert. Oriented X3. No acute distress. Eyes: PERRLA, No Nystagmus ENT: Pharynx normal. Oral Mucosa moist Neck: Normal inspection. Neck supple. CVS: Normal heart rate and rhythm. Pulses normal. Respiratory: No respiratory distress. Equal air entry bilateral, bilateral wheezing with prolonged expiration, and cough Abdomen: Soft and nontender. Bowel sounds are present, no mass palpable, no CVA tenderness Skin: Skin warm and dry. Normal skin color. Normal skin turgor. Extremities: No lower extremity edema. No calf tenderness Neuro: Oriented X 3. No motor deficit. Medications Administered Discontinued Medications Generic Name Dose Route Start Last Admin Trade Name Freq PRN Reason Stop Dose Admin Albuterol Sulfate 2 puff 05/17/22 22:58 05/17/22 23:42 Albuterol Sulfate 90 Mcg 8 Gm Inhaler INHALE 05/17/22 22:59 Not Given ONCE ONE Amoxicillin/Clavulanate Potassium 875 mg 05/17/22 22:58 05/18/22 00:28 Amoxicillin/Potassium Clav 875 Mg Tablet PO 05/17/22 22:59 875 mg ONCE ONE Administration Albuterol Sulfate 2.5 mg/ 0 mg 05/17/22 22:58 05/17/22 23:38 Albuterol/Ipratropium 3 ml INHALE 05/17/22 22:59 2.5 each ONCE ONE Administration Dexamethasone 10 mg 05/17/22 22:58 05/18/22 00:28 Dexamethasone 2 Mg Tablet PO 05/17/22 22:59 10 mg ONCE ONE Administration Guaifenesin/Codeine Phosphate 10 ml 05/17/22 22:58 05/18/22 00:29 Guaifen/Codeine Sf 200/20/10ml 10 Ml Liquid PO 05/17/22 22:59 10 ml ONCE ONE Administration Medical Decision Making Medical Decision Making [facility] Narrative: Patient with asthmatic bronchitis chest x-ray negative discharge patient home on prednisone, antibiotics and inhaler Lab Data [facility] Lab Attestation statement: I reviewed the patient's lab results. Labs: Lab Results 05/17/22 Range/Units 21:02 Influenza Type A (PCR) NEGATIVE (Negative) Influenza Type B (PCR) NEGATIVE (Negative) RSV RNA Qual (PCR) NEGATIVE (Negative) SARS-CoV-2 RNA (RT-PCR) NEGATIVE (Negative) Discharge Plan Discharge Clinical Impression: Acute asthmatic bronchitis Patient Disposition: Home, Self-Care Instructions: Asthma (ED), Acute Bronchitis (ED) Additional Instructions: Using albuterol inhaler as prescribed Antibiotic cough syrup and prednisone Follow with PCP if not better Prescriptions: New codeine-guaifenesin 10-100 mg/5 mL liquid 10 ml PO Q6H PRN (Reason: cough) Qty: 237 0RF amoxicillin-pot clavulanate 875-125 mg tablet 1 tab PO BID Qty: 20 0RF prednisone 20 mg tablet 40 mg PO DAILY Qty: 10 0RF albuterol sulfate [ProAir HFA] 90 mcg/actuation HFA aerosol inhaler 2 puff inhalation Q4-6H PRN (Reason: shortness of breath or wheezing) Qty: 8.5 0RF No Action hydroxyzine HCl 25 mg tablet 25 mg PO BID PRN (Reason: anxiety) Qty: 14 1RF azithromycin 250 mg tablet See Rx Instructions PO .COMPLEX Qty: 6 0RF Rx Instructions: take 500 mg today (day 1), then 250 mg for 4 days (days 2-5) PO Interventions: ED Discharge Assessment Last Done: 05/18/22 00:33 Discharge Date/Time: 05/18/22 00:34
[2022-05-18] MEDS: dexAMETHasone 2 MG TABLET 10 MG PO (00:28)
[2022-05-18] MEDS: Amoxicillin/Potassium Clav 875 MG TABLET PO (00:28)
[2022-05-18] MEDS: guaiFEN/Codeine SF 200/20/10ML 10 ML LIQUID PO (00:29)
== END 2022-05-18 00:34 | disposition home or self-care (01) ==
PROVIDERS: Emergency Provider Internal Medicine; PCP Internal Medicine
DX: J20.9 Acute bronchitis, unspecified (principal); J45.909 Unspecified asthma, uncomplicated; Z20.822 Contact with and (suspected) exposure to COVID-19; Z20.828 Contact with and (suspected) exposure to other viral communicable diseases
CPT/HCPCS: 0241U; 71045; 94640; 99283; 99284; J8540

== ENCOUNTER 2022-09-02 14:46 | Emergency (ER) | payer OTHER, SELFPAY ==
--- NOTE | ~2022-09-02 | XR_ITS ---
EXAMINATION: XR chest 1V CLINICAL INFORMATION: Reason for Exam cough and chest tightness COMPARISON: 05/17/2022 TECHNIQUE: XR chest 1V Tubes and lines: None Lungs and pleura: Both lungs are clear. Heart and mediastinum: The mediastinum is within normal limits.. Bones/soft tissue: Skeletal structures included are normal for patient's age. XR/XR chest 1V IMPRESSION: No radiographic evidence of acute cardiopulmonary disease.
--- NOTE | 2022-09-02 15:00 | ECG_ITS ---
Test Reason : CHEST PAIN Blood Pressure : / mmHG Vent. Rate : 108 BPM Atrial Rate : 108 BPM P-R Int : 152 ms QRS Dur : 078 ms QT Int : 322 ms P-R-T Axes : 061 049 033 degrees QTc Int : 431 ms Sinus tachycardia Otherwise normal ECG When compared with ECG of 19-NOV-2021 14:09, No significant change was found Referred By: Generic ED Physician Electronically Signed By:SAUMYA RAYMUNDO MD
[2022-09-02 15:19] LABS: MANUAL DIFF FLAG NO
[2022-09-02 15:28] VITALS: BP 141/84; PULSE 104; RESP 22; TEMP 36.9; O2SAT 100; BMI 38.3
[2022-09-02 15:31] LABS: Basophils Percent Auto 0.3 % (0-2); Eosinophils Absolute Auto 0.1 X10*3/uL (0.0-0.4); Eosinophils Percent Auto 0.6 % (0-4); Hematocrit 37.7 % (37.0-47.0); Hemoglobin 12.9 g/dl (12.0-16.0); Imm Gran Abs Auto 0.04 X10*3/uL (0.00-0.03); Imm Gran Pct Auto 0.4 % (0.0-0.4); Lymphocytes Absolute Auto 1.2 X10*3/uL (1.2-4.9); Lymphocytes Percent Auto 12.4 % (20-40); Mean Corpuscular HGB Conc 34.2 g/dl (31.0-35.0); Mean Corpuscular Hemoglobin 30.2 pg (27.0-33.0); Mean Corpuscular Volume 88.3 fL (80.0-98.0); Monocytes Absolute Auto 0.6 X10*3/uL (0.1-1.2); Monocytes Percent Auto 6.2 % (2-11); Neutrophils Percent Auto 80.1 % (45-73); Platelet Count 288 X10*3/uL (160-400); Red Blood Count 4.27 X10*6/uL (4.20-5.50); Red Cell Distribution Width 12.6 % (11.0-16.0)
--- NOTE | 2022-09-02 15:31 | ED.GENADULT ---
HPI - General Adult General Chief complaint: Upper Respiratory Symptoms <SEBAS Hale - Last Filed: 09/03/22 12:26> Stated complaint: SOB/Chest pain <SEBAS Hale - Last Filed: 09/03/22 12:26> Time Seen by Provider: 09/02/22 15:42 <SEBAS Hale - Last Filed: 09/03/22 12:26> History of Present Illness HPI narrative: Patient complains of several days of cough productive of sputum associated with increased chest tightness and wheezing, as well as body aches, no nasal congestion no sore throat no chest pain no abdominal pain no nausea vomiting or diarrhea <SEBAS Gant - Last Filed: 09/08/22 15:08> Related Data Home medications: Previous Rx's Medication Instructions Recorded hydroxyzine HCl 25 mg tablet 25 mg PO BID PRN anxiety #14 tabs 07/26/20 azithromycin 250 mg tablet See Rx Instructions PO .COMPLEX #6 02/15/21 tabs albuterol sulfate 90 mcg/actuation 2 puff inhalation Q4-6H PRN 05/18/22 aerosol inhaler (ProAir HFA) shortness of breath or wheezing #8.5 grams amoxicillin 875 mg-potassium 1 tab PO BID #20 tabs 05/18/22 clavulanate 125 mg tablet codeine 10 mg-guaifenesin 100 mg/5 10 ml PO Q6H PRN cough #237 mL 05/18/22 mL oral liquid prednisone 20 mg tablet 40 mg PO DAILY #10 tabs 05/18/22 albuterol sulfate 2.5 mg/3 mL 2.5 mg (3 mL) inhalation Q4-6H PRN 09/02/22 (0.083 %) solution for nebulization shortness of breath or wheezing #75 mL albuterol sulfate 90 mcg/actuation 2 puff inhalation Q4-6H PRN 09/02/22 aerosol inhaler shortness of breath or wheezing #8.5 grams azithromycin 250 mg tablet See Rx Instructions PO .COMPLEX #6 09/02/22 (Zithromax Z-Sherman) tabs benzonatate 200 mg capsule 200 mg PO BID PRN cough #10 caps 09/02/22 lorazepam 1 mg tablet (Ativan) 1 mg PO BID PRN Anxiety attack #10 09/02/22 tabs prednisone 20 mg tablet 60 mg PO DAILY 4 days #12 tabs 09/02/22 <SEBAS Hale - Last Filed: 09/03/22 12:26> Allergies/adverse reactions: Allergies Allergy/AdvReac Type Severity Reaction Status Date / Time No Known Allergies Allergy Verified 09/02/22 15:28 [No Known Allergies*] Pt states no food/medication Allergy Unknown unknown Uncoded 05/17/22 20:24 a <SEBAS Hale - Last Filed: 09/03/22 12:26> [facility] Past Medical History Source: nursing notes reviewed <SEBAS Gant - Last Filed: 09/08/22 15:08> Medical History: Medical History GERD (gastroesophageal reflux disease) <SEBAS Hale - Last Filed: 09/03/22 12:26> Surgical History: Surgical History Gastric bypass status for obesity <SEBAS Hale - Last Filed: 09/03/22 12:26> Social History Social History: Social History Advance Directives: No Advance Directives Information Provided: Yes <SEBAS Hale - Last Filed: 09/03/22 12:26> Physical Exam ED Vital Signs: Vital Signs - 24 hr 09/02/22 15:28 09/02/22 17:53 09/02/22 18:37 Temperature 98.4 F Pulse Rate 104 H 99 108 H Respiratory Rate 22 H 29 H 26 H Blood Pressure 141/84 H 130/69 Pulse Oximetry 100 98 Oxygen Delivery Method Room Air Room Air BMI result Body Mass Index 38.3 <SEBAS Hale - Last Filed: 09/03/22 12:26> Vital Signs - 24 hr 09/02/22 15:28 09/02/22 17:53 09/02/22 18:37 Temperature 98.4 F Pulse Rate 104 H 99 108 H Respiratory Rate 22 H 29 H 26 H Blood Pressure 141/84 H 130/69 Pulse Oximetry 100 98 Oxygen Delivery Method Room Air Room Air BMI result Body Mass Index 38.3 <SEBAS Gant - Last Filed: 09/08/22 15:08> General appearance no acute distress The eyes no redness or discharge The sinuses nontender The pharynx is clear without redness swelling or exudate, membranes are moist Neck is supple Chest there was scattered wheezing with good air entry no respiratory distress no other adventitious sounds The heart no murmur Abdomen soft nontender Extremities range of motion x4 Neuro no focal deficits <SEBAS Gatn Last Filed: 09/08/22 15:08> Course Course Course Narrative: RME: 36 yold female presents to the ED for coughing, bodyaches, chills, and chest tightness. patient denies any chest pain. labs, JEANMARIE, chest xray, and SARS ordered <SEBAS Hale - Last Filed: 09/03/22 12:26> RME: 36 yold female presents to the ED for coughing, bodyaches, chills, and chest tightness. patient denies any chest pain. labs, JEANMARIE, chest xray, and SARS ordered CBC showed white count of 10 with 80% neutrophils, consistent with an infection or stress Chemistries included a troponin of under 2.7 were normal Serology was negative for COVID RSV and flu Chest x-ray was normal Patient was comfortably wheezing on 1st exam, a nebulizer treatment was ordered and while waiting for it she did have an anxiety attack with hyperventilation, this was relieved by encouraging the patient to breathe more slowly into a paper bag, as well as giving her an Ativan, this did explain her increased respiratory rate during her visit for a brief while She was calmed by this and was given a nebulizer treatment with full relief of her shortness of breath and mild wheezing did remain but lung sounds were much clearer and Severino after the nap Patient now well-appearing with no shortness of breath, anxiety attack and hyperventilation resolved is discharged with prescriptions for nebulizer prednisone cough drop and antibiotic, as well as Ativan if needed for anxiety attacks <SEBAS Gant Last Filed: 09/08/22 15:08> Medications Administered Discontinued Medications Generic Name Dose Route Start Last Admin Trade Name Freq PRN Reason Stop Dose Admin Acetaminophen 650 mg 09/02/22 18:16 09/02/22 18:21 Acetaminophen 325 Mg Tablet PO 09/02/22 18:17 650 mg ONCE ONE Administration Albuterol/Ipratropium 3 ml 09/02/22 17:08 09/02/22 17:53 Albuterol/Iprat 2.5/0.5mg 3 Ml Ampul.Neb INHALE 09/02/22 17:09 3 ml ONCE ONE Administration Lorazepam 1 mg 09/02/22 17:44 09/02/22 17:54 Lorazepam 1 Mg Tablet PO 09/02/22 17:45 1 mg ONCE ONE Administration Prednisone 60 mg 09/02/22 18:33 09/02/22 18:42 Prednisone 20 Mg Tablet PO 09/02/22 18:34 60 mg ONCE ONE Administration <SEBAS Hale - Last Filed: 09/03/22 12:26> Medications Administered Discontinued Medications Generic Name Dose Route Start Last Admin Trade Name Jo Ann PRN Reason Stop Dose Admin Acetaminophen 650 mg 09/02/22 18:16 09/02/22 18:21 Acetaminophen 325 Mg Tablet PO 09/02/22 18:17 650 mg ONCE ONE Administration Albuterol/Ipratropium 3 ml 09/02/22 17:08 09/02/22 17:53 Albuterol/Iprat 2.5/0.5mg 3 Ml Ampul.Neb INHALE 09/02/22 17:09 3 ml ONCE ONE Administration Lorazepam 1 mg 09/02/22 17:44 09/02/22 17:54 Lorazepam 1 Mg Tablet PO 09/02/22 17:45 1 mg ONCE ONE Administration Prednisone 60 mg 09/02/22 18:33 09/02/22 18:42 Prednisone 20 Mg Tablet PO 09/02/22 18:34 60 mg ONCE ONE Administration <SEBAS Gant - Last Filed: 09/08/22 15:08> Medical Decision Making Lab Data MDM Lab Attestation statement: I reviewed the patient's lab results. <SEBAS Gant - Last Filed: 09/08/22 15:08> Result Diagrams: 09/02/22 15:14 09/02/22 15:14 <SEBAS Hale - Last Filed: 09/03/22 12:26> Labs: Lab Results 09/02/22 09/02/22 09/02/22 Range/Units 15:14 15:14 15:14 WBC 10.0 (4.8-10.8) X10*3/uL RBC 4.27 (4.20-5.50) X10*6/uL Hgb 12.9 (12.0-16.0) g/dl Hct 37.7 (37.0-47.0) % MCV 88.3 (80.0-98.0) fL MCH 30.2 (27.0-33.0) pg MCHC 34.2 (31.0-35.0) g/dl RDW 12.6 (11.0-16.0) % Plt Count 288 (160-400) X10*3/uL MPV 10.0 (9.4-12.3) fL Immature Gran % (Auto) 0.4 (0.0-0.4) % Neut % (Auto) 80.1 H (45-73) % Lymph % (Auto) 12.4 L (20-40) % [place] % (Auto) 6.2 (2-11) % Eos % (Auto) 0.6 (0-4) % Baso % (Auto) 0.3 (0-2) % Lymph # (Auto) 1.2 (1.2-4.9) X10*3/uL [place] # (Auto) 0.6 (0.1-1.2) X10*3/uL Eos # (Auto) 0.1 (0.0-0.4) X10*3/uL Baso # (Auto) 0.0 (0.0-0.2) X10*3/uL Abs Immat Gran (auto) 0.04 H (0.00-0.03) X10*3/uL Absolute Neuts (auto) 8.0 (2.0-8.3) x10*3/uL Absolute Nucleated RBC 0.000 (0.0-0.012) X10*3/uL Nucleated RBC % (auto) 0.0 (0.0-0.2) /100WBC Sodium 141 (135-145) mmol/L Potassium 3.6 (3.3-5.1) mmol/L Chloride 107 (96-108) mmol/L Carbon Dioxide 26 (22-29) mmol/L Anion Gap 12 (12-20) BUN 9 (9-16) mg/dL Creatinine 0.73 (0.5-1.4) mg/dL Estim Creat Clear Calc 99.6 Estimated GFR > 60 Random Glucose 84 (60-115) mg/dL Calcium 9.0 (8.4-10.2) mg/dL Troponin I High Sens < 2.7 (<3.5-17.0) ng/L Influenza Type A (PCR) (Negative) Influenza Type B (PCR) (Negative) RSV RNA Qual (PCR) (Negative) SARS-CoV-2 RNA (RT-PCR) (Negative) 09/02/22 Range/Units 15:49 WBC (4.8-10.8) X10*3/uL RBC (4.20-5.50) X10*6/uL Hgb (12.0-16.0) g/dl Hct (37.0-47.0) % MCV (80.0-98.0) fL MCH (27.0-33.0) pg MCHC (31.0-35.0) g/dl RDW (11.0-16.0) % Plt Count (160-400) X10*3/uL MPV (9.4-12.3) fL Immature Gran % (Auto) (0.0-0.4) % Neut % (Auto) (45-73) % Lymph % (Auto) (20-40) % [place] % (Auto) (2-11) % Eos % (Auto) (0-4) % Baso % (Auto) (0-2) % Lymph # (Auto) (1.2-4.9) X10*3/uL [place] # (Auto) (0.1-1.2) X10*3/uL Eos # (Auto) (0.0-0.4) X10*3/uL Baso # (Auto) (0.0-0.2) X10*3/uL Abs Immat Gran (auto) (0.00-0.03) X10*3/uL Absolute Neuts (auto) (2.0-8.3) x10*3/uL Absolute Nucleated RBC (0.0-0.012) X10*3/uL Nucleated RBC % (auto) (0.0-0.2) /100WBC Sodium (135-145) mmol/L Potassium (3.3-5.1) mmol/L Chloride (96-108) mmol/L Carbon Dioxide (22-29) mmol/L Anion Gap (12-20) BUN (9-16) mg/dL Creatinine (0.5-1.4) mg/dL Estim Creat Clear Calc Estimated GFR Random Glucose (60-115) mg/dL Calcium (8.4-10.2) mg/dL Troponin I High Sens (<3.5-17.0) ng/L Influenza Type A (PCR) NEGATIVE (Negative) Influenza Type B (PCR) NEGATIVE (Negative) RSV RNA Qual (PCR) NEGATIVE (Negative) SARS-CoV-2 RNA (RT-PCR) NEGATIVE (Negative) <SEBAS Hale - Last Filed: 09/03/22 12:26> Lab Results 09/02/22 09/02/22 09/02/22 Range/Units 15:14 15:14 15:14 WBC 10.0 (4.8-10.8) X10*3/uL RBC 4.27 (4.20-5.50) X10*6/uL Hgb 12.9 (12.0-16.0) g/dl Hct 37.7 (37.0-47.0) % MCV 88.3 (80.0-98.0) fL MCH 30.2 (27.0-33.0) pg MCHC 34.2 (31.0-35.0) g/dl RDW 12.6 (11.0-16.0) % Plt Count 288 (160-400) X10*3/uL MPV 10.0 (9.4-12.3) fL Immature Gran % (Auto) 0.4 (0.0-0.4) % Neut % (Auto) 80.1 H (45-73) % Lymph % (Auto) 12.4 L (20-40) % [place] % (Auto) 6.2 (2-11) % Eos % (Auto) 0.6 (0-4) % Baso % (Auto) 0.3 (0-2) % Lymph # (Auto) 1.2 (1.2-4.9) X10*3/uL [place] # (Auto) 0.6 (0.1-1.2) X10*3/uL Eos # (Auto) 0.1 (0.0-0.4) X10*3/uL Baso # (Auto) 0.0 (0.0-0.2) X10*3/uL Abs Immat Gran (auto) 0.04 H (0.00-0.03) X10*3/uL Absolute Neuts (auto) 8.0 (2.0-8.3) x10*3/uL Absolute Nucleated RBC 0.000 (0.0-0.012) X10*3/uL Nucleated RBC % (auto) 0.0 (0.0-0.2) /100WBC Sodium 141 (135-145) mmol/L Potassium 3.6 (3.3-5.1) mmol/L Chloride 107 (96-108) mmol/L Carbon Dioxide 26 (22-29) mmol/L Anion Gap 12 (12-20) BUN 9 (9-16) mg/dL Creatinine 0.73 (0.5-1.4) mg/dL Estim Creat Clear Calc 99.6 Estimated GFR > 60 Random Glucose 84 (60-115) mg/dL Calcium 9.0 (8.4-10.2) mg/dL Troponin I High Sens < 2.7 (<3.5-17.0) ng/L Influenza Type A (PCR) (Negative) Influenza Type B (PCR) (Negative) RSV RNA Qual (PCR) (Negative) SARS-CoV-2 RNA (RT-PCR) (Negative) 09/02/22 Range/Units 15:49 WBC (4.8-10.8) X10*3/uL RBC (4.20-5.50) X10*6/uL Hgb (12.0-16.0) g/dl Hct (37.0-47.0) % MCV (80.0-98.0) fL MCH (27.0-33.0) pg MCHC (31.0-35.0) g/dl RDW (11.0-16.0) % Plt Count (160-400) X10*3/uL MPV (9.4-12.3) fL Immature Gran % (Auto) (0.0-0.4) % Neut % (Auto) (45-73) % Lymph % (Auto) (20-40) % [place] % (Auto) (2-11) % Eos % (Auto) (0-4) % Baso % (Auto) (0-2) % Lymph # (Auto) (1.2-4.9) X10*3/uL [place] # (Auto) (0.1-1.2) X10*3/uL Eos # (Auto) (0.0-0.4) X10*3/uL Baso # (Auto) (0.0-0.2) X10*3/uL Abs Immat Gran (auto) (0.00-0.03) X10*3/uL Absolute Neuts (auto) (2.0-8.3) x10*3/uL Absolute Nucleated RBC (0.0-0.012) X10*3/uL Nucleated RBC % (auto) (0.0-0.2) /100WBC Sodium (135-145) mmol/L Potassium (3.3-5.1) mmol/L Chloride (96-108) mmol/L Carbon Dioxide (22-29) mmol/L Anion Gap (12-20) BUN (9-16) mg/dL Creatinine (0.5-1.4) mg/dL Estim Creat Clear Calc Estimated GFR Random Glucose (60-115) mg/dL Calcium (8.4-10.2) mg/dL Troponin I High Sens (<3.5-17.0) ng/L Influenza Type A (PCR) NEGATIVE (Negative) Influenza Type B (PCR) NEGATIVE (Negative) RSV RNA Qual (PCR) NEGATIVE (Negative) SARS-CoV-2 RNA (RT-PCR) NEGATIVE (Negative) <SEBAS Gant - Last Filed: 09/08/22 15:08> Discharge Plan Discharge Clinical Impression: Bronchitis, Wheezing <SEBAS Hale - Last Filed: 09/03/22 12:26> Patient Disposition: Home, Self-Care <SEBAS Hale - Last Filed: 09/03/22 12:26> Additional Instructions: We are treating for bronchitis with Zithromax antibiotic and wheezing with both albuterol and prednisone You had an anxiety attack in the emergency room with hyperventilation, so I wrote for some Ativan as Very important if you are hyperventilating breathe into a paper bag so you are not retaining too much carbon dioxide, also try to slow down her breathing so You exhale for twice as long as you inhale to make sure you clear carbon dioxide from your body Return any time for difficulty breathing any worse condition any concerns Follow with primary doctor next week for recheck of breathing and wheezing <SEBAS Hale - Last Filed: 09/03/22 12:26> Prescriptions: New albuterol sulfate 2.5 mg /3 mL (0.083 %) solution for nebulization 2.5 mg inhalation Q4-6H PRN (Reason: shortness of breath or wheezing) Qty: 75 0RF albuterol sulfate 90 mcg/actuation HFA aerosol inhaler 2 puff inhalation Q4-6H PRN (Reason: shortness of breath or wheezing) Qty: 8.5 0RF azithromycin [Zithromax Z-Sherman] 250 mg tablet See Rx Instructions .ROUTE .COMPLEX Qty: 6 0RF Rx Instructions: For 250 mg dose pack: take 500 mg today (day 1), then 250 mg for 4 days (days 2-5) prednisone 20 mg tablet 60 mg PO DAILY 4 Days Qty: 12 0RF lorazepam [Ativan] 1 mg tablet 1 mg PO BID PRN (Reason: Anxiety attack) Qty: 10 0RF benzonatate 200 mg capsule 200 mg PO BID PRN (Reason: cough) Qty: 10 0RF No Action hydroxyzine HCl 25 mg tablet 25 mg PO BID PRN (Reason: anxiety) Qty: 14 1RF codeine-guaifenesin 10-100 mg/5 mL liquid 10 ml PO Q6H PRN (Reason: cough) Qty: 237 0RF amoxicillin-pot clavulanate 875-125 mg tablet 1 tab PO BID Qty: 20 0RF prednisone 20 mg tablet 40 mg PO DAILY Qty: 10 0RF albuterol sulfate [ProAir HFA] 90 mcg/actuation HFA aerosol inhaler 2 puff inhalation Q4-6H PRN (Reason: shortness of breath or wheezing) Qty: 8.5 0RF azithromycin 250 mg tablet See Rx Instructions PO .COMPLEX Qty: 6 0RF Rx Instructions: take 500 mg today (day 1), then 250 mg for 4 days (days 2-5) PO <SEBAS Hale - Last Filed: 09/03/22 12:26> Stand Alone Forms: Work/School Release <SEBAS Hale - Last Filed: 09/03/22 12:26> Interventions: ED Discharge Assessment Last Done: 09/02/22 18:50 <SEBAS Hale - Last Filed: 09/03/22 12:26> Discharge Date/Time: 09/02/22 18:50 <SEBAS Hale - Last Filed: 09/03/22 12:26>
[2022-09-02 15:33] LABS: Anion Gap 12 (12-20); Blood Urea Nitrogen 9 mg/dL (9-16); Carbon Dioxide 26 mmol/L (22-29); Chloride 107 mmol/L (96-108); Creatinine Clr Calc Pharmacy 99.6; Estimated Glomerular Filt Rate > 60; Glucose Random 84 mg/dL (60-115); Potassium 3.6 mmol/L (3.3-5.1); Sodium 141 mmol/L (135-145)
[2022-09-02 15:58] LABS: Troponin-I High Sensitivity < 2.7 ng/L (<3.5-17.0)
[2022-09-02 16:34] LABS: Influenza A PCR NEGATIVE (Negative); Influenza B PCR NEGATIVE (Negative); Resp Syncy Virus RNA Qual PCR NEGATIVE (Negative); SARS COV2 PCR INHOUSE NEGATIVE (Negative)
[2022-09-02 17:53] VITALS: PULSE 99; RESP 29; O2SAT 98
[2022-09-02] MEDS: Albuterol/Iprat 2.5/0.5MG 3 ML AMPUL.NEB INHALE (17:53)
[2022-09-02] MEDS: LORazepam 1 MG TABLET PO (17:54)
[2022-09-02] MEDS: Acetaminophen 325 MG TABLET 650 MG PO (18:21)
--- NOTE | 2022-09-02 18:31 | PC.NURSE ---
nurse called to room, pt observed to be hyperventalating, stated she could not breathe- placed pt on 2L O2 via nc- coached pt through breathing exercises to slow respirations. SpO2 99-100% RA hr: 96-104- respiratory called to bedside- duoneb given- ativan ordered and given for anxiety. pt SpO2 currently 100% on RA HR 101- WCTM
[2022-09-02 18:37] VITALS: BP 130/69; PULSE 108; RESP 26; O2SAT 98
--- NOTE | 2022-09-02 18:37 | PC.NURSE ---
APAP 650given for 10/10 headache pain
[2022-09-02] MEDS: predniSONE 20 MG TABLET 60 MG PO (18:42)
== END 2022-09-02 18:50 | disposition home or self-care (01) ==
PROVIDERS: Physician Assistant; Emergency Provider Internal Medicine; PCP Internal Medicine
DX: R07.89 Other chest pain (principal); R06.02 Shortness of breath; M79.10 Myalgia, unspecified site; Z20.822 Contact with and (suspected) exposure to COVID-19; Z20.828 Contact with and (suspected) exposure to other viral communicable diseases; Z79.899 Other long term (current) drug therapy
CPT/HCPCS: 0241U; 36415; 71045; 80048; 84484; 85025; 93005; 94640; 99284

== ENCOUNTER 2023-01-01 05:55 | Emergency (ER) | payer OTHER, SELFPAY ==
--- NOTE | ~2023-01-01 | XR_ITS ---
EXAMINATION: XR SHOULDER, RIGHT CLINICAL INFORMATION: Shoulder pain COMPARISON: None available. TECHNIQUE: 2 views frontal and scapular Y view of the right shoulder. FINDINGS: The bones and soft tissues are normal. No fracture. Glenohumeral and acromioclavicular alignment is anatomic with normal joint space. No abnormal soft tissue calcifications. XR/XR shoulder RT min 2V IMPRESSION: No fracture or dislocation.
[2023-01-01 06:11] VITALS: BP 118/70; PULSE 86; RESP 16; TEMP 36.7; O2SAT 97; BMI 38.4
--- NOTE | 2023-01-01 07:32 | ED.EXTPRO ---
HPI - Extremity Problem General Chief complaint: Extremity Injury, Upper Stated complaint: ?Dislocated shoulder Time Seen by Provider: 01/01/23 06:54 Source: patient Mode of arrival: ambulatory Limitations: no limitations History of Present Illness HPI Narrative: Patient is a 37-year-old female presenting to the emergency department with right shoulder pain and decreased range of motion since Saturday. She denies any falls or other trauma. She denies prior shoulder injuries or surgery. She has been using Tylenol with little relief. She denies any numbness or tingling to her arm. Reports pain is to anterior shoulder and worsens with forward flexion. MD Complaint: extremity pain Onset (ago): day(s) Pain Consistency: constant Location: right Quality: burning Radiation: none Relieving factors: rest Exacerbating factors: range of motion Associated symptoms: denies other symptoms Related Data Previous Rx's Medication Instructions Recorded hydroxyzine HCl 25 mg tablet 25 mg PO BID PRN anxiety #14 tabs 07/26/20 azithromycin 250 mg tablet See Rx Instructions PO .COMPLEX #6 02/15/21 tabs albuterol sulfate 90 mcg/actuation 2 puff inhalation Q4-6H PRN 05/18/22 aerosol inhaler (ProAir HFA) shortness of breath or wheezing #8.5 grams amoxicillin 875 mg-potassium 1 tab PO BID #20 tabs 05/18/22 clavulanate 125 mg tablet codeine 10 mg-guaifenesin 100 mg/5 10 ml PO Q6H PRN cough #237 mL 05/18/22 mL oral liquid prednisone 20 mg tablet 40 mg PO DAILY #10 tabs 05/18/22 albuterol sulfate 2.5 mg/3 mL 2.5 mg (3 mL) inhalation Q4-6H PRN 09/02/22 (0.083 %) solution for nebulization shortness of breath or wheezing #75 mL albuterol sulfate 90 mcg/actuation 2 puff inhalation Q4-6H PRN 09/02/22 aerosol inhaler shortness of breath or wheezing #8.5 grams azithromycin 250 mg tablet See Rx Instructions PO .COMPLEX #6 09/02/22 (Zithromax Z-Sherman) tabs benzonatate 200 mg capsule 200 mg PO BID PRN cough #10 caps 09/02/22 lorazepam 1 mg tablet (Ativan) 1 mg PO BID PRN Anxiety attack #10 09/02/22 tabs prednisone 20 mg tablet 60 mg PO DAILY 4 days #12 tabs 09/02/22 Allergies Allergy/AdvReac Type Severity Reaction Status Date / Time No Known Allergies Allergy Verified 09/02/22 15:28 [No Known Allergies*] Pt states no food/medication Allergy Unknown unknown Uncoded 05/17/22 20:24 a Review of Systems Review of Systems: As per HPI. Yes all other systems are reviewed and are negative Constitutional: Constitutional: Reports as per HPI [facility] Past Medical History Medical History GERD (gastroesophageal reflux disease) Surgical History Gastric bypass status for obesity Social History Social History Advance Directives: No Advance Directives Information Provided: Yes Physical Exam Vital Signs: Vital Signs: Last Vital Signs Temp 98.0 F 01/01/23 06:11 Pulse 86 01/01/23 06:11 Resp 16 01/01/23 06:11 BP 118/70 01/01/23 06:11 Pulse Ox 97 01/01/23 06:11 O2 Del Method Room Air 01/01/23 06:11 BMI result Body Mass Index 38.4 Vital signs have been reviewed and appear to be correct. Blood pressure normal. Heart rate normal. Respiratory rate normal. Temperature normal. Oxygen saturation normal. Const: General: cooperative, healthy appearing and no acute distress Orientation/consciousness: oriented to person, oriented to place, oriented to time and patient oriented x3 Limitations: no limitations HEENT: Head: Yes normocephalic and Yes atraumatic Ears: external ears normal General nose exam: Normal external nose present Face and sinus: Yes face symmetric Mouth: oropharynx normal and moist mucous membranes Throat: Yes uvula midline Eyes: Pupils: Equal, round and reactive pupils present Neck: Neck: Yes normal visual inspection and Yes supple Resp: Effort & Inspection: normal respiratory effort and able to speak in complete sentences Auscultation: clear to auscultation bilaterally Cardio: Rate: regular rate Rhythm: regular rhythm Heart sounds: S1 normal heart sound present and S2 normal heart sound present GI: Palpation (GI): Soft to palpation and nontender Auscultation: normoactive bowel sounds : General: Yes no CVA tenderness Back/Spine/Pelvis: Back: no CVA tenderness Skin: General skin exam: elasticity normal and turgor normal Neuro: General: oriented to person, oriented to place, oriented to time, patient oriented x3, moves all extremities, no focal motor deficits, CN's II-XI intact bilaterally and deep tendon reflexes 2+ bilaterally Cranial nerves: Yes Equal, round and reactive pupils present Cognition (Neuro): normal cognition Extrem: General: Yes full ROM, Yes no pedal edema and Yes no calf tenderness Right upper extremity: normal to inspection, shoulder/upper arm Details: normal to inspection, tenderness Location: over the subacromial bursa and abnormal ROM Details: pain with active ROM Details: in flexion, pain with passive ROM Details: with flexion and with range as follows (forward flexion to 100 degrees) and Extremity exam: right hand Details: normal to inspection, normal capillary refill, vascular exam Details: radial pulse present and normal ROM of fingers Psych: Mental Status: mental status grossly normal Affect: normal affect Thought process: Normal thought process present Medical Decision Making Medical Decision Making MDM Narrative: Patient is a 37-year-old female presenting to the emergency department with right shoulder pain and decreased range of motion since Saturday. On exam patient is awake, A+Ox3, VS WNL, afebrile, normal neurological exam without focal deficits, tenderness to right anterior shoulder, ROM limited to 100 degrees with forward flexion, increased pain with forward flexion, neurovascularly intact distal. Given reported symptoms and physical exam findings, initial differential includes repetitive stress injury, rotator cuff tendinopathy, strain. Unlikely tendor tear as patient denies trauma. X-ray notable for no acute abnormalities. My interpretation is in agreement with the radiologist's interpretation. Given absence of trauma, feel symptoms are likely related to rotator cuff strain. Advised patient to alternate ibuprofen and tylenol and follow up with orthopedics for further evaluation. Return precautions discussed at bedside. Patient verbalized understanding of and agreement with plan. Differential Diagnosis Differential Diagnoses: The differential diagnosis associated with the presentation includes As per MDM. Independent Interpretation I performed an independent interpretation of an: Plain X-Ray Interpretation: No acute abnormalities of left shoulder. Radiology Impression Discussion of test interpretation with radiology: I have reviewed the radiologist's reading. Radiologist Impression: FINDINGS: The bones and soft tissues are normal. No fracture. Glenohumeral and acromioclavicular alignment is anatomic with normal joint space. No abnormal soft tissue calcifications.? XR/XR shoulder RT min 2V IMPRESSION: No fracture or dislocation. External Record Review External record reviewed: Inpatient record, Office record and Outpatient record Discharge Plan Discharge Clinical Impression: Rotator cuff strain Patient Disposition: Home, Self-Care Instructions: Rotator Cuff Injury (ED), Rotator Cuff Injury Exercises (DC) Additional Instructions: You have been evaluated in the emergency department today for shoulder pain. Your evaluation did not find evidence of medical conditions requiring emergent intervention at this time. Please rest and ice your shoulder, and resume normal activities as tolerated. We recommend you take 600mg ibuprofen every 6 hours or 650mg Tylenol every 6 hours as needed for pain. If needed you can alternate these medications as they take 1 medication every 3 hours. For instance at noon take ibuprofen, then at 3:00 p.m. take Tylenol, then at 6:00 p.m. take ibuprofen. Please schedule an appointment WITH ORTHOPEDICS this week. Return to the emergency department if you experience worsening pain, numbness, tingling, change of color in your arm, or any other concerning symptoms. Prescriptions: No Action hydroxyzine HCl 25 mg tablet 25 mg PO BID PRN (Reason: anxiety) Qty: 14 1RF codeine-guaifenesin 10-100 mg/5 mL liquid 10 ml PO Q6H PRN (Reason: cough) Qty: 237 0RF amoxicillin-pot clavulanate 875-125 mg tablet 1 tab PO BID Qty: 20 0RF prednisone 20 mg tablet 40 mg PO DAILY Qty: 10 0RF albuterol sulfate [ProAir HFA] 90 mcg/actuation HFA aerosol inhaler 2 puff inhalation Q4-6H PRN (Reason: shortness of breath or wheezing) Qty: 8.5 0RF albuterol sulfate 2.5 mg /3 mL (0.083 %) solution for nebulization 2.5 mg inhalation Q4-6H PRN (Reason: shortness of breath or wheezing) Qty: 75 0RF albuterol sulfate 90 mcg/actuation HFA aerosol inhaler 2 puff inhalation Q4-6H PRN (Reason: shortness of breath or wheezing) Qty: 8.5 0RF azithromycin [Zithromax Z-Sherman] 250 mg tablet See Rx Instructions .ROUTE .COMPLEX Qty: 6 0RF Rx Instructions: For 250 mg dose pack: take 500 mg today (day 1), then 250 mg for 4 days (days 2-5) prednisone 20 mg tablet 60 mg PO DAILY 4 Days Qty: 12 0RF lorazepam [Ativan] 1 mg tablet 1 mg PO BID PRN (Reason: Anxiety attack) Qty: 10 0RF benzonatate 200 mg capsule 200 mg PO BID PRN (Reason: cough) Qty: 10 0RF azithromycin 250 mg tablet See Rx Instructions PO .COMPLEX Qty: 6 0RF Rx Instructions: take 500 mg today (day 1), then 250 mg for 4 days (days 2-5) PO Referrals: [facility] [Provider Group] Stand Alone Forms: Work/School Release
== END 2023-01-01 08:32 | disposition home or self-care (01) ==
PROVIDERS: Emergency Provider Emergency Medicine; PCP Internal Medicine
DX: S43.421A Sprain of right rotator cuff capsule, initial encounter (principal); X58.XXXA Exposure to other specified factors, initial encounter; Y93.9 Activity, unspecified; Y92.9 Unspecified place or not applicable; Y99.9 Unspecified external cause status; Z79.899 Other long term (current) drug therapy
CPT/HCPCS: 73030; 99282; 99283

== ENCOUNTER 2024-11-27 12:17 | Emergency (ER) | payer OTHER, SELFPAY ==
--- NOTE | ~2024-11-27 | XR_ITS ---
CLINICAL HISTORY: chest pain Two views of the chest. COMPARISON: None provided. FINDINGS: Normal heart and mediastinal contours. No consolidation. No pleural effusion or pneumothorax. No acute fracture. IMPRESSION: 1. No consolidation. This document has been electronically signed by: Brian Gabriel MD on 11/27/2024 13:22:16
--- NOTE | 2024-11-27 12:38 | ED_ITS ---
HPI - General Adult General Chief complaint: Chest Pain Stated complaint: Chest pain, low blood sugar Time Seen by Provider: 11/27/24 12:38 Source: patient, EMS and other (patient's partner) Mode of arrival: EMS Limitations: no limitations History of Present Illness ED Provider: Margaret Chery PA-C HPI narrative: Patient is a 39 year old assigned female at with a history of anxiety an panic attacks presenting to the emergency department today after discovering she has low blood sugar and a panic attack. Patient states that she was at work when she started to feel unwell so they checked her sugar and it was 65. Patient states that she was given food and then began to have a panic attack. Patient denies any current dizziness, lightheadedness, abdominal pain, nausea, vomiting, fever, chills, blurry vision, double vision, loss of vision, chest pain, difficulty breathing, shortness of breath, back pain, night sweats, pain with urination, increased urinary frequency, increased urinary urgency, blood in her urine or stool, syncope or a near syncopal episode, recent trauma or falls, bowel incontinence, bladder incontinence, or any other complaints at this time. Relieving factors: none Exacerbating factors: none Associated symptoms: denies other symptoms Treatments prior to arrival: none Related Data Previous Rx's ?Medication ?Instructions ?Recorded hydroxyzine HCl 25 mg tablet 25 mg PO BID PRN anxiety #14 tabs 07/26/20 azithromycin 250 mg tablet See Rx Instructions PO .COM PLEX #6 02/15/21 tabs albuterol sulfate 90 mcg/actuation 2 puff inhalation Q 4-6H PRN 05/18/22 aerosol inhaler (ProAir HFA) shortness of breath or wh eezing #8.5 grams amoxicillin 875 mg-potassium 1 tab PO BID #20 tabs clavulanate 125 mg tablet codeine 10 mg-guaifenesin 100 mg/5 10 ml PO Q6H PRN co ugh #237 mL 05/18/22 mL oral liquid prednisone 20 mg tablet 40 mg (2 x 20 mg) PO DAILY # 10 tabs 05/18/22 albuterol sulfate 2.5 mg/3 mL 2.5 mg (3 mL) inhalation Q4-6H PRN 09/02/22 (0.083 %) solution for nebulization shortness of breat h or wheezing #75 mL albuterol sulfate 90 mcg/actuation 2 puff inhalation Q 4-6H PRN 09/02/22 aerosol inhaler shortness of breath or wheez ing #8.5 grams azithromycin 250 mg tablet See Rx Instructions PO .COM PLEX #6 09/02/22 (Zithromax Z-Sherman) tabs benzonatate 200 mg capsule 200 mg PO BID PRN cough #10 caps 09/02/22 lorazepam 1 mg tablet (Ativan) 1 mg PO BID PRN Anxiety attack #10 09/02/22 tabs prednisone 20 mg tablet 60 mg (3 x 20 mg) PO DAILY 4 days 09/02/22 #12 tabs Allergies Allergy/AdvReac Type Severity Reaction Status Date / Time No Known Allergies (No Known Allergy Verified 11/27/24 12:43 Allergies*) Pt states no food/medication Allergy Unknown unknown Uncoded 11/27/24 12:43 a Review of Systems 2 Constitutional: Constitutional: Reports no additional constitutional complaints, Denies chills, Denies fever(s) and Denies night sweats Eyes: Eyes: Reports no additional eye complaints, Denies blurry vision, Denies change in vision, Denies diplopia, Denies eye discharge, Denies loss of vision and Denies eye pain ENT: Denies dizziness Cardiovascular: Cardiovascular: Reports no additional cardiovascular complaints, Denies chest pain, Denies lightheadedness, Denies Loss of Consciousness and Denies dyspnea Respiratory: Respiratory: Reports no additional respiratory complaints and Denies dyspnea Gastrointestinal: Gastrointestinal: Reports no additional gastrointestinal complaints, Denies abdominal pain, Denies melena, Denies hematochezia, Denies change in bowel habits and Denies change in stool character Genitourinary: Genitourinary: Denies hematuria, Denies urinary frequency, Denies dysuria, Denies urinary incontinence, Denies urinary hesitancy and Denies urinary urgency Musculoskeletal: Musculoskeletal: Reports no additional musculoskeletal complaints, Denies numbness and Denies tingling Neurologic: Denies dizziness, Denies loss of vision, Denies numbness and Denies tingling Psychiatric: Psychiatric: Reports no additional psychiatric complaints Endocrine: Endocrine: Reports no additional endocrine complaints Hematologic/Lymphatic: Hematologic/Lymphatic: Reports no additional hematologic/lymphatic complaints Allergic/Immunologic: Allergic/Immunologic: Reports no additional allergic/immunologic complaints PMFSH Past Medical History Attestation statement: The following information was validated with the patient. Source: old records reviewed and nursing notes reviewed Medical History GERD (gastroesophageal reflux disease) Surgical History Gastric bypass status for obesity Social History Social History Smoked in Last 30 Days: Yes Use of substances other than those prescribed or required for medical reasons: No Advance Directives: No Advance Directives Information Provided: No Do you have a plan to hurt others: No Plan Patient : No Physical Exam ED Vital Signs: Vital Signs - 24 hr 11/27/24 12:40 11/27/24 14:10 11/27/24 14:33 Temperature 98 F 97.9 F Pulse Rate 85 76 70 Respiratory Rate 19 22 H 15 Blood Pressure 121/78 128/66 124/66 Pulse Oximetry 99 98 100 Oxygen Delivery Method Room Air Room Air BMI result Body Mass Index 30.7 Const General: cooperative, no acute distress, alert and awake Nutritional Appearance: well nourished Orientation/consciousness: patient oriented x3 HENMT Head: Yes normal to inspection and Yes atraumatic Ears: hearing grossly normal bilaterally and external ears normal General nose exam: Normal external nose present, no nasal discharge noted and no epistaxis Face and sinus: Yes normal facial exam, No abrasion and No laceration Mouth: Normal oral and palatal mucosa present, no drooling and no muffled voice Eyes General: appearance normal, both eyes and all related structures Periorbital: periorbital findings normal Eyelids: Yes eyelids normal Conjunctivae: conjunctivae normal Pupils: Equal, round and reactive pupils present EOM: EOMs intact bilaterally Neck Neck: Yes normal visual inspection, Yes full ROM and Yes no lymphadenopathy Resp Effort & Inspection: normal respiratory effort and able to speak in complete sentences Neuro General: patient oriented x3, moves all extremities and CN's II-XI intact bilaterally Cranial nerves: Yes Equal, round and reactive pupils present Cognition (Neuro): normal cognition Extrem General: Yes normal to inspection, Yes full ROM and Yes capillary refill normal Psych Appearance: grossly normal Mental Status: mental status grossly normal Affect: normal affect Attitude: cooperative Thought process: Normal thought process present Thought content: Normal thought content present Insight: Good insight present (Psych) Medications Administered Discontinued Medications Generic Name Dose Route Start Last Admin Trade Name Jo Ann PRN Reason Stop Dose Admin Lorazepam 2 mg 11/27/24 12:42 11/27/24 12:56 Lorazepam 1 Mg Tablet PO 11/27/24 12:43 Not Given ONCE ONE Medical Decision Making Medical Decision Making [facility] Narrative: Patient is a 39 year old assigned female at with a history of anxiety an panic attacks presenting to the emergency department today after discovering she has low blood sugar and a panic attack. Patient's physical exam was unremarkable. Patient's blood work was unremarkable. Patient's EKG was unremarkable. Patient's chest x-ray showed no acute process. I explained my physical exam findings as well as all test results to the patient and the patient's partner. I answered all questions asked by the patient and the patient's partner. I stressed the importance of the patient taking her medication as directed (either prescribed or as the over the counter packaging recommends). I stressed the importance of the patient following up with her primary care provider. I stressed the importance of the patient returning to the emergency department immediately if her symptoms were to worsen or if she were to develop any dizziness, shortness of breath, difficulty breathing, chest pain, blurry vision, loss of vision, nausea, vomiting, abdominal pain, fever, chills, back pain, or any other complaints. Patient and the patient's partner verbalized agreement and understanding with this treatment plan and discharge. Differential Diagnosis Differential Diagnoses: The differential diagnosis associated with the presentation includes Panic attack Low blood sugar Anxiety NSTEMI STEMI Admission/Observation Consideration of admission/observation: Escalation of care including admission/observation considered Patient would have been admitted to the hospital had her work up had any findings where hospital admission was appropriate and her clinical presentation warranted hospital admission. Lab Data [facility] Lab Attestation statement: I reviewed the patient's lab results. My interpretation of these results are in the [facility] Rationale portion of this note. 11/27/24 13:18 11/27/24 13:18 Labs: Lab Results 11/27/24 Range/Units 13:18 WBC 8.2 (4.8-10.8) X10*3/uL RBC 4.80 (4.20-5.50) X10*6/uL Hgb 14.6 (12.0-16.0) g/dl Hct 41.7 (37.0-47.0) % MCV 86.9 (80.0-98.0) fL MCH 30.4 (27.0-33.0) pg MCHC 35.0 (31.0-35.0) g/dl RDW 13.2 (11.0-16.0) % Plt Count 322 (160-400) X10*3/uL MPV 9.7 (9.4-12.3) fL Immature Gran % (Auto) 0.4 (0.0-0.4) % Neut % (Auto) 61.6 (45-73) % Lymph % (Auto) 28.3 (20-40) % Shelby % (Auto) 7.7 (2-11) % Eos % (Auto) 1.3 (0-4) % Baso % (Auto) 0.7 (0-2) % Lymph # (Auto) 2.3 (1.2-4.9) X10*3/uL Shelby # (Auto) 0.6 (0.1-1.2) X10*3/uL Eos # (Auto) 0.1 (0.0-0.4) X10*3/uL Baso # (Auto) 0.1 (0.0-0.2) X10*3/uL Abs Immat Gran (auto) 0.03 (0.00-0.03) X10*3/uL Absolute Neuts (auto) 5.1 (2.0-8.3) x10*3/uL Absolute Nucleated RBC 0.000 (0.0-0.012) X10*3/uL Nucleated RBC % (auto) 0.0 (0.0-0.2) /100WBC Sodium 139 (135-145) mmol/L Potassium 3.9 (3.3-5.1) mmol/L Chloride 107 (96-108) mmol/L Carbon Dioxide 22 (22-29) mmol/L Anion Gap 14 (12-20) BUN 11 (9-16) mg/dL Creatinine 0.71 (0.5-1.4) mg/dL Estim Creat Clear Calc 88.1 Estimated GFR > 60 Random Glucose 70 (60-115) mg/dL Calcium 9.5 (8.4-10.2) mg/dL Magnesium 1.9 (1.6-2.6) mg/dL Total Bilirubin 0.3 (0.0-1.0) mg/dL AST 15 (5-31) U/L ALT 19 (0-31) U/L Alkaline Phosphatase 74 (39-117) U/L Troponin I High Sens < 2.7 (<3.5-17.0) ng/L Total Protein 8.3 H (6.5-8.0) g/dL Albumin 5.0 (3.5-5.0) g/dL Independent Interpretation I performed an independent interpretation of an: EKG and Plain X-Ray Interpretation: My interpretation is in agreement with the radiologist's impression of this imaging study. L CLINICAL HISTORY: chest pain Two views of the chest. COMPARISON: None provided. FINDINGS: Normal heart and mediastinal contours. No consolidation. No pleural effusion or pneumothorax. No acute fracture. IMPRESSION: 1. No consolidation. This document has been electronically signed by: Brian Gabriel MD on 11/27/2024 13:22:16 Dictated By: Brian Gabriel MD Signed By: Electronically signed by Brian Gabriel MD 11/27/24 1323 I independently interpreted this EKG and am in agreement with the below findings: Vent. Rate: 77 BPM Atrial Rate: 77 BPM P-R Int: 172 ms QRS Dur: 72 ms QT Int: 370 ms P-R-T Axes: 75 58 52 degrees QTcB Int: 418 ms Normal sinus rhythm Cannot rule out Anterior infarct , age undetermined When compared with ECG of 02-Sep-2022 15:02, No significant change was found DD/ 1300 Radiology Impression Discussion of test interpretation with radiology: I have reviewed the radiologist's reading. Independent Historian Clinical information obtained from an independent historian. History obtained from or confirmed by: EMS (EMS provided additional history and confirmed the history provided by the patient. ) and Other (Patient's partner provided additional history and confirmed the history provided by the patient. ) Discharge Plan Discharge Clinical Impression: Panic attack Patient Disposition: Home, Self-Care Instructions: Panic Attack (ED) Additional Instructions: Your work up today was reassuring there is no emergent cause for your symptoms. Follow up with your primary care provider. Return to the emergency department immediately if your symptoms worsen or if you develop any numbness, tingling, dizziness, shortness of breath, difficulty breathing, chest pain, blurry vision, loss of vision, nausea, vomiting, abdominal pain, fever, chills, back pain, or any other complaints. Please see the information below about our Patient Portal. If you are not yet enrolled in the [facility] Patient Portal, you will receive an enrollment email invitation following your visit to any [facility] setting. You may also self-enroll in the Patient Portal by visiting our website: [email or web address] The following information is required to access the Patient Portal: - Your [facility] [place] Number - Your personal home email address (must match what is in your electronic medical record, Registration staff can assist with this) - Name - Date of Capabilities of the Patient Portal: - Message some providers - View upcoming appointments - Access your health summary, medical history, and visit history - View current conditions and allergies - View procedure and lab results - View your medications, including guidelines, side effects, and precautions - Complete pre-appointment questionnaires requested by your provider - Ready summary reports of your office visits and procedures To access the Patient Portal Mobile [facility], follow these directions: - Search [employer] in the [facility] Store or [employer] Store - Download the [facility] - Search for [facility] - Enter your login/password Prescriptions: No Action hydroxyzine HCl 25 mg tablet 25 mg PO BID PRN (Reason: anxiety) Qty: 14 1RF codeine-guaifenesin 10-100 mg/5 mL liquid 10 ml PO Q6H PRN (Reason: cough) Qty: 237 0RF amoxicillin-pot clavulanate 875-125 mg tablet 1 tab PO BID Qty: 20 0RF prednisone 20 mg tablet 40 mg PO DAILY Qty: 10 0RF albuterol sulfate [ProAir HFA] 90 mcg/actuation HFA aerosol inhaler 2 puff inhalation Q4-6H PRN (Reason: shortness of breath or wheezing) Qty: 8.5 0RF albuterol sulfate 2.5 mg /3 mL (0.083 %) solution for nebulization 2.5 mg inhalation Q4-6H PRN (Reason: shortness of breath or wheezing) Qty: 75 0RF albuterol sulfate 90 mcg/actuation HFA aerosol inhaler 2 puff inhalation Q4-6H PRN (Reason: shortness of breath or wheezing) Qty: 8.5 0RF azithromycin [Zithromax Z-Sherman] 250 mg tablet See Rx Instructions .ROUTE .COMPLEX Qty: 6 0RF Rx Instructions: For 250 mg dose pack: take 500 mg today (day 1), then 250 mg for 4 days (days 2-5) prednisone 20 mg tablet 60 mg PO DAILY 4 Days Qty: 12 0RF lorazepam [Ativan] 1 mg tablet 1 mg PO BID PRN (Reason: Anxiety attack) Qty: 10 0RF benzonatate 200 mg capsule 200 mg PO BID PRN (Reason: cough) Qty: 10 0RF azithromycin 250 mg tablet See Rx Instructions PO .COMPLEX Qty: 6 0RF Rx Instructions: take 500 mg today (day 1), then 250 mg for 4 days (days 2-5) PO Referrals: Pablito Varela III, MD [Primary Care Provider, Medical] Stand Alone Forms: Work/School Release Interventions: ED Discharge Assessment Last Done: 11/27/24 14:33 Discharge Date/Time: 11/27/24 14:35 Print Language: Hungarian
[2024-11-27 12:40] VITALS: BP 121/78; PULSE 85; RESP 19; TEMP 36.6; O2SAT 99; BMI 30.7
--- NOTE | 2024-11-27 12:41 | ECG_ITS ---
Test Reason : CHEST PAIN Blood Pressure : */* mmHG Vent. Rate : 77 BPM Atrial Rate : 77 BPM P-R Int : 172 ms QRS Dur : 72 ms QT Int : 370 ms P-R-T Axes : 75 58 52 degrees QTcB Int : 418 ms Normal sinus rhythm Cannot rule out Anterior infarct , age undetermined Abnormal ECG When compared with ECG of 02-Sep-2022 15:02, No significant change was found Referred By: Lilly Morris Electronically Signed By: SAUMYA RAYMUNDO MD
--- NOTE | 2024-11-27 12:56 | PC.NURSE ---
This Nurse went to go medicate pt per MAR, pt refused the medication stated that she doesn't like the way it makes her feel.
[2024-11-27 13:25] LABS: MANUAL DIFF FLAG NO
[2024-11-27 13:31] LABS: Hematocrit 41.7 % (37.0-47.0); Hemoglobin 14.6 g/dl (12.0-16.0); Imm Gran Abs Auto 0.03 X10*3/uL (0.00-0.03); Imm Gran Pct Auto 0.4 % (0.0-0.4); Lymphocytes Absolute Auto 2.3 X10*3/uL (1.2-4.9); Mean Corpuscular HGB Conc 35.0 g/dl (31.0-35.0); Mean Corpuscular Hemoglobin 30.4 pg (27.0-33.0); Mean Corpuscular Volume 86.9 fL (80.0-98.0); NRBC Abs Auto 0.000 X10*3/uL (0.0-0.012); NRBC Pct Auto 0.0 /100WBC (0.0-0.2); Platelet Count 322 X10*3/uL (160-400); Red Blood Count 4.80 X10*6/uL (4.20-5.50); White Blood Count 8.2 X10*3/uL (4.8-10.8)
[2024-11-27 13:42] LABS: Alanine Aminotransferase 19 U/L (0-31); Albumin Level 5.0 g/dL (3.5-5.0); Alkaline Phosphatase 74 U/L (39-117); Anion Gap 14 (12-20); Aspartate Amino Transferase 15 U/L (5-31); Blood Urea Nitrogen 11 mg/dL (9-16); Calcium 9.5 mg/dL (8.4-10.2); Carbon Dioxide 22 mmol/L (22-29); Chloride 107 mmol/L (96-108); Creatinine Clr Calc Pharmacy 88.1; Estimated Glomerular Filt Rate > 60; Magnesium 1.9 mg/dL (1.6-2.6); Potassium 3.9 mmol/L (3.3-5.1); Sodium 139 mmol/L (135-145); Total Protein 8.3 g/dL (6.5-8.0)
[2024-11-27 13:49] LABS: Troponin-I High Sensitivity < 2.7 ng/L (<3.5-17.0)
[2024-11-27 14:10] VITALS: BP 128/66; PULSE 76; RESP 22; O2SAT 98
[2024-11-27 14:33] VITALS: BP 124/66; PULSE 70; RESP 15; TEMP 36.6; O2SAT 100
[2024-11-30 10:48] LABS: Glucose, Whole Blood 94 mg/dL (60-115)
== END 2024-11-27 14:35 | disposition home or self-care (01) ==
PROVIDERS: Physician Assistant Medical; Emergency Provider Emergency Medicine Emergency Medical Services; PCP Internal Medicine
DX: F41.0 Panic disorder [episodic paroxysmal anxiety] (principal); F43.0 Acute stress reaction; R07.89 Other chest pain; R94.31 Abnormal electrocardiogram [ECG] [EKG]; Z98.84 Bariatric surgery status
CPT/HCPCS: 36415; 71046; 80053; 82947; 83735; 84484; 85025; 93005; 99283; 99285

== ENCOUNTER → 2024-11-27 12:41 | Outpatient (BNV) | payer OTHER, SELFPAY | PROVIDERS: Emergency Provider Emergency Medicine Emergency Medical Services; PCP Internal Medicine; Visit Provider Internal Medicine Cardiovascular Disease | DX: R94.31 Abnormal electrocardiogram [ECG] [EKG] (principal); R07.9 Chest pain, unspecified | CPT/HCPCS: 93010 ==

== ENCOUNTER → 2024-11-27 12:42 | Outpatient (BNV) | payer OTHER, SELFPAY | PROVIDERS: PCP Internal Medicine; Visit Provider Radiology Diagnostic Radiology | DX: R07.9 Chest pain, unspecified (principal) | CPT/HCPCS: 71046 ==